=== PATIENT | male | born 1960 | race Caucasian/White ===

== ENCOUNTER 2017-07-09 12:28 | Inpatient (IN) | payer OTHER ==
[~2017-07-09] VITALS: Ht 182.9 cm; Wt 77.2 kg
[~2017-07-09 12:28] MED LIST: CYCL10 PO; GABA100 PO; GABA300 PO; HYDACE10B PO; LORA.5 PO; METPRE4DP PO; Norco 5-325 Ta1 EACH PO; OLAN10 PO; Pravastatin Sod40 MG PO; Prozac40 MG PO
[2017-07-09 13:08] LABS: International Normalized Ratio 1.07; Prothrombin Time Results 11.1 Sec (9.7-11.5)
[2017-07-09 13:08] LABS: PCO2 Arterial 48.5 mmHg (35-45); PO2 Arterial 56.3 mmHg (80-100); pH Blood Arterial 7.34 (7.35-7.45)
[2017-07-09 13:09] LABS: Ethanol (Alcohol), Blood, Med <3 mg/dL
[2017-07-09 13:15] LABS: Alanine Aminotransfer (ALT/SGP 30 U/L (12-78); Albumin, Blood 3.6 g/dL (3.4-5.0); Albumin/Globulin Ratio 1.1 (0.8-1.8); Alk Phos 80 U/L (50-136); Anion Gap 20 mmol/L (6-16); Aspartate Aminotrans (AST/SGOT 42 U/L (12-37); Bilirubin, Total 0.6 mg/dL (0.1-1.0); Blood Urea Nitrogen 7 mg/dL (8-24); Bun/Creatinine Ratio 8.7 (12.0-20.0); CO2, Blood 21 mmol/L (21-32); Calcium, Blood 7.8 mg/dL (8.5-10.1); Chloride, Blood 62 mmol/L (98-108); Globulin, Blood 3.4 g/dL (2.2-4.0); Glomerular Filtration Rate >60 (60-); Glucose, Blood 214 mg/dL (70-99); Potassium, Blood 2.8 mmol/L (3.5-5.5); Sodium, Blood 103 mmol/L (136-145)
[2017-07-09 13:28] LABS: Creatine Kinase MB 7.8 ng/mL (0.0-3.6); Creatine Kinase MB Index 1.5 (0.0-4.0)
[2017-07-09 13:42] LABS: U Amphetamine Screen Not Detected; U Barbituate Screen Not Detected; U Benzodiazapine Screen Not Detected; U Buprenorphine Screen Not Detected; U Cannabinoids Screen Not Detected; U Cocaine Screen Not Detected; U Methadone Screen Not Detected; U Methamphetamine Screen Not Detected; U Opiates Screen Not Detected; U Oxycodone Screen Not Detected; U Phencyclidine Screen Not Detected; U Propoxyphene Screen Not Detected
[2017-07-09 14:58] LABS: BASOPHILS PERCENT AUTO 0 % (0-2); EOSINOPHILS ABSOLUTE AUTO 0.02 K/mm3 (0.00-0.68); EOSINOPHILS PERCENT AUTO 0 % (0-6); IMMATURE GRAN ABSOLUTE AUTO 0.06 K/mm3 (0.00-0.10); IMMATURE GRAN PERCENT AUTO 1 % (0-1); LYMPHOCYTES PERCENT AUTO 11 % (21-46); MONOCYTES ABSOLUTE AUTO 0.35 K/mm3 (0.16-1.47); MONOCYTES PERCENT AUTO 3 % (4-13); Mean Platelet Volume 9.1 fL (9.1-12.4); NEUTROPHILS ABSOLUTE AUTO 9.05 K/mm3 (1.96-9.15); NEUTROPHILS PERCENT AUTO 85 % (41-73); Platelet Count 310 K/mm3 (150-400); RDW Coefficient Variation 12.3 % (11.7-14.2); RDW Standard Deviation 38.2 fL (35.1-46.3); Red Blood Cell Count 4.35 M/mm3 (4.30-5.90); White Blood Cell Count 10.68 K/mm3 (4.00-11.30)
[2017-07-09 16:47] LABS: Mean Corpuscular HGB Conc 36.8 g/dL (31.5-36.5)
[2017-07-09 16:48] LABS: Mean Corpuscular HGB 32.2 pg (26.0-34.0)
[2017-07-09 16:49] LABS: Mean Corpuscular Volume 87 fL (80-100)
[2017-07-09 17:25] LABS: Anion Gap 10 mmol/L (6-16); Blood Urea Nitrogen 6 mg/dL (8-24); Bun/Creatinine Ratio 8.6 (12.0-20.0); CO2, Blood 25 mmol/L (21-32); Chloride, Blood 77 mmol/L (98-108); Glomerular Filtration Rate >60 (60-); Glucose, Blood 89 mg/dL (70-99); Sodium, Blood 112 mmol/L (136-145)
[2017-07-09 18:14] LABS: Sodium, Urine, Random 67 mmol/L (20-110)
[2017-07-09 18:33] LABS: Osmolality, Urine 339 mos/kg (15-1400)
[2017-07-10 04:06] LABS: Anion Gap 8 mmol/L (6-16); Blood Urea Nitrogen 6 mg/dL (8-24); Bun/Creatinine Ratio 7.3 (12.0-20.0); CO2, Blood 25 mmol/L (21-32); Calcium, Blood 7.6 mg/dL (8.5-10.1); Chloride, Blood 85 mmol/L (98-108); Creatinine, Blood 0.82 mg/dL (0.60-1.20); Glomerular Filtration Rate >60 (60-); Glucose, Blood 83 mg/dL (70-99); Potassium, Blood 3.6 mmol/L (3.5-5.5); Sodium, Blood 118 mmol/L (136-145)
[2017-07-10 14:39] LABS: Anion Gap 9 mmol/L (6-16); Blood Urea Nitrogen 4 mg/dL (8-24); Bun/Creatinine Ratio 5.2 (12.0-20.0); CO2, Blood 27 mmol/L (21-32); Calcium, Blood 7.6 mg/dL (8.5-10.1); Chloride, Blood 86 mmol/L (98-108); Creatinine, Blood 0.76 mg/dL (0.60-1.20); Glomerular Filtration Rate >60 (60-); Glucose, Blood 90 mg/dL (70-99); Potassium, Blood 2.7 mmol/L (3.5-5.5); Sodium, Blood 122 mmol/L (136-145)
[2017-07-11 05:13] LABS: PCO2 Arterial 39.6 mmHg (35-45); PO2 Arterial 56.5 mmHg (80-100); pH Blood Arterial 7.51 (7.35-7.45)
[2017-07-11 06:55] LABS: BASOPHILS ABSOLUTE AUTO 0.01 K/mm3 (0.00-0.23); BASOPHILS PERCENT AUTO 0 % (0-2); EOSINOPHILS ABSOLUTE AUTO 0.03 K/mm3 (0.00-0.68); EOSINOPHILS PERCENT AUTO 0 % (0-6); Hematocrit 29.3 % (37.0-53.0); Hemoglobin 10.7 g/dL (13.5-17.5); IMMATURE GRAN ABSOLUTE AUTO 0.02 K/mm3 (0.00-0.10); IMMATURE GRAN PERCENT AUTO 0 % (0-1); LYMPHOCYTES ABSOLUTE AUTO 1.47 K/mm3 (0.84-5.20); LYMPHOCYTES PERCENT AUTO 18 % (21-46); MONOCYTES ABSOLUTE AUTO 0.51 K/mm3 (0.16-1.47); MONOCYTES PERCENT AUTO 6 % (4-13); Mean Corpuscular HGB 32.1 pg (26.0-34.0); Mean Corpuscular HGB Conc 36.5 g/dL (31.5-36.5); Mean Corpuscular Volume 88 fL (80-100); Mean Platelet Volume 8.8 fL (9.1-12.4); NEUTROPHILS ABSOLUTE AUTO 6.13 K/mm3 (1.96-9.15); NEUTROPHILS PERCENT AUTO 75 % (41-73); Platelet Count 188 K/mm3 (150-400); RDW Coefficient Variation 12.6 % (11.7-14.2); RDW Standard Deviation 40.9 fL (35.1-46.3); Red Blood Cell Count 3.33 M/mm3 (4.30-5.90); White Blood Cell Count 8.17 K/mm3 (4.00-11.30)
[2017-07-11 07:17] LABS: Anion Gap 7 mmol/L (6-16); Blood Urea Nitrogen 3 mg/dL (8-24); Bun/Creatinine Ratio 4.3 (12.0-20.0); CO2, Blood 30 mmol/L (21-32); Calcium, Blood 7.9 mg/dL (8.5-10.1); Chloride, Blood 86 mmol/L (98-108); Glomerular Filtration Rate >60 (60-); Glucose, Blood 85 mg/dL (70-99); Potassium, Blood 3.3 mmol/L (3.5-5.5); Sodium, Blood 123 mmol/L (136-145)
[2017-07-11 15:45] LABS: Anion Gap 6 mmol/L (6-16); Blood Urea Nitrogen 3 mg/dL (8-24); Bun/Creatinine Ratio 3.9 (12.0-20.0); CO2, Blood 29 mmol/L (21-32); Calcium, Blood 7.9 mg/dL (8.5-10.1); Chloride, Blood 86 mmol/L (98-108); Creatinine, Blood 0.78 mg/dL (0.60-1.20); Glomerular Filtration Rate >60 (60-); Glucose, Blood 97 mg/dL (70-99); Potassium, Blood 3.5 mmol/L (3.5-5.5); Sodium, Blood 121 mmol/L (136-145)
[2017-07-12 04:04] LABS: BASOPHILS ABSOLUTE AUTO 0.01 K/mm3 (0.00-0.23); BASOPHILS PERCENT AUTO 0 % (0-2); EOSINOPHILS ABSOLUTE AUTO 0.02 K/mm3 (0.00-0.68); EOSINOPHILS PERCENT AUTO 0 % (0-6); Hematocrit 31.8 % (37.0-53.0); Hemoglobin 11.6 g/dL (13.5-17.5); IMMATURE GRAN ABSOLUTE AUTO 0.02 K/mm3 (0.00-0.10); IMMATURE GRAN PERCENT AUTO 0 % (0-1); LYMPHOCYTES ABSOLUTE AUTO 0.65 K/mm3 (0.84-5.20); LYMPHOCYTES PERCENT AUTO 8 % (21-46); MONOCYTES ABSOLUTE AUTO 0.34 K/mm3 (0.16-1.47); MONOCYTES PERCENT AUTO 4 % (4-13); Mean Corpuscular HGB 32.2 pg (26.0-34.0); Mean Corpuscular HGB Conc 36.5 g/dL (31.5-36.5); Mean Corpuscular Volume 88 fL (80-100); NEUTROPHILS PERCENT AUTO 88 % (41-73); Platelet Count 208 K/mm3 (150-400); RDW Coefficient Variation 12.6 % (11.7-14.2); RDW Standard Deviation 40.9 fL (35.1-46.3); White Blood Cell Count 8.44 K/mm3 (4.00-11.30)
[2017-07-12 04:26] LABS: Anion Gap 9 mmol/L (6-16); Blood Urea Nitrogen 3 mg/dL (8-24); Bun/Creatinine Ratio 3.9 (12.0-20.0); CO2, Blood 22 mmol/L (21-32); Chloride, Blood 91 mmol/L (98-108); Creatinine, Blood 0.77 mg/dL (0.60-1.20); Glomerular Filtration Rate >60 (60-); Glucose, Blood 106 mg/dL (70-99); Potassium, Blood 3.7 mmol/L (3.5-5.5); Sodium, Blood 122 mmol/L (136-145)
[2017-07-12 05:01] LABS: PCO2 Arterial 31.4 mmHg (35-45); PO2 Arterial 70.6 mmHg (80-100); pH Blood Arterial 7.49 (7.35-7.45)
[2017-07-12 18:19] LABS: Anion Gap 10 mmol/L (6-16); Blood Urea Nitrogen 4 mg/dL (8-24); Bun/Creatinine Ratio 5.3 (12.0-20.0); CO2, Blood 22 mmol/L (21-32); Calcium, Blood 8.6 mg/dL (8.5-10.1); Chloride, Blood 90 mmol/L (98-108); Creatinine, Blood 0.76 mg/dL (0.60-1.20); Glomerular Filtration Rate >60 (60-); Glucose, Blood 90 mg/dL (70-99); Potassium, Blood 3.7 mmol/L (3.5-5.5); Sodium, Blood 122 mmol/L (136-145)
[2017-07-13 03:23] LABS: BASOPHILS ABSOLUTE AUTO 0.01 K/mm3 (0.00-0.23); BASOPHILS PERCENT AUTO 0 % (0-2); EOSINOPHILS ABSOLUTE AUTO 0.08 K/mm3 (0.00-0.68); EOSINOPHILS PERCENT AUTO 1 % (0-6); Hematocrit 32.2 % (37.0-53.0); Hemoglobin 11.4 g/dL (13.5-17.5); IMMATURE GRAN ABSOLUTE AUTO 0.02 K/mm3 (0.00-0.10); IMMATURE GRAN PERCENT AUTO 0 % (0-1); LYMPHOCYTES ABSOLUTE AUTO 1.33 K/mm3 (0.84-5.20); LYMPHOCYTES PERCENT AUTO 19 % (21-46); MONOCYTES ABSOLUTE AUTO 0.74 K/mm3 (0.16-1.47); MONOCYTES PERCENT AUTO 10 % (4-13); Mean Corpuscular HGB 32.1 pg (26.0-34.0); Mean Corpuscular HGB Conc 35.4 g/dL (31.5-36.5); Mean Platelet Volume 9.2 fL (9.1-12.4); NEUTROPHILS ABSOLUTE AUTO 4.97 K/mm3 (1.96-9.15); NEUTROPHILS PERCENT AUTO 70 % (41-73); Platelet Count 203 K/mm3 (150-400); RDW Standard Deviation 43.2 fL (35.1-46.3); Red Blood Cell Count 3.55 M/mm3 (4.30-5.90); White Blood Cell Count 7.15 K/mm3 (4.00-11.30)
[2017-07-13 03:24] LABS: Mean Corpuscular Volume 91 fL (80-100)
[2017-07-13 04:43] LABS: Alanine Aminotransfer (ALT/SGP 29 U/L (12-78); Albumin, Blood 2.6 g/dL (3.4-5.0); Albumin/Globulin Ratio 0.8 (0.8-1.8); Alk Phos 59 U/L (50-136); Anion Gap 8 mmol/L (6-16); Aspartate Aminotrans (AST/SGOT 48 U/L (12-37); Bilirubin, Total 0.5 mg/dL (0.1-1.0); Blood Urea Nitrogen 5 mg/dL (8-24); CO2, Blood 23 mmol/L (21-32); Chloride, Blood 95 mmol/L (98-108); Creatinine, Blood 0.71 mg/dL (0.60-1.20); Globulin, Blood 3.4 g/dL (2.2-4.0); Glomerular Filtration Rate >60 (60-); Glucose, Blood 77 mg/dL (70-99); Phosphorus, Blood 3.4 mg/dL (2.5-4.9); Potassium, Blood 3.7 mmol/L (3.5-5.5); Sodium, Blood 126 mmol/L (136-145)
[2017-07-13] MEDS ORDERED: VARE1 PO (17:26)
[2017-07-13] MEDS ORDERED: HYDCHL25 PO (17:28)
[2017-07-13] MEDS ORDERED: Hydrocodone-Ap1 EA20 PO (17:31)
[2017-07-13] MEDS ORDERED: GABA300 PO (17:32)
[2017-07-14 04:45] LABS: BASOPHILS ABSOLUTE AUTO 0.02 K/mm3 (0.00-0.23); BASOPHILS PERCENT AUTO 0 % (0-2); EOSINOPHILS ABSOLUTE AUTO 0.11 K/mm3 (0.00-0.68); EOSINOPHILS PERCENT AUTO 1 % (0-6); Hematocrit 31.5 % (37.0-53.0); Hemoglobin 11.1 g/dL (13.5-17.5); IMMATURE GRAN ABSOLUTE AUTO 0.03 K/mm3 (0.00-0.10); IMMATURE GRAN PERCENT AUTO 0 % (0-1); LYMPHOCYTES ABSOLUTE AUTO 1.47 K/mm3 (0.84-5.20); LYMPHOCYTES PERCENT AUTO 16 % (21-46); MONOCYTES ABSOLUTE AUTO 1.08 K/mm3 (0.16-1.47); MONOCYTES PERCENT AUTO 12 % (4-13); Mean Corpuscular HGB 32.3 pg (26.0-34.0); Mean Corpuscular HGB Conc 35.2 g/dL (31.5-36.5); Mean Corpuscular Volume 92 fL (80-100); Mean Platelet Volume 8.9 fL (9.1-12.4); NEUTROPHILS ABSOLUTE AUTO 6.58 K/mm3 (1.96-9.15); NEUTROPHILS PERCENT AUTO 71 % (41-73); Platelet Count 236 K/mm3 (150-400); RDW Coefficient Variation 13.2 % (11.7-14.2); RDW Standard Deviation 44.4 fL (35.1-46.3); Red Blood Cell Count 3.44 M/mm3 (4.30-5.90); White Blood Cell Count 9.29 K/mm3 (4.00-11.30)
[2017-07-14 04:59] LABS: Alanine Aminotransfer (ALT/SGP 26 U/L (12-78); Albumin, Blood 2.6 g/dL (3.4-5.0); Albumin/Globulin Ratio 0.7 (0.8-1.8); Alk Phos 52 U/L (50-136); Anion Gap 9 mmol/L (6-16); Aspartate Aminotrans (AST/SGOT 36 U/L (12-37); Bilirubin, Total 0.3 mg/dL (0.1-1.0); Blood Urea Nitrogen 5 mg/dL (8-24); Bun/Creatinine Ratio 7.1 (12.0-20.0); CO2, Blood 23 mmol/L (21-32); Calcium, Blood 8.4 mg/dL (8.5-10.1); Chloride, Blood 94 mmol/L (98-108); Globulin, Blood 3.5 g/dL (2.2-4.0); Glomerular Filtration Rate >60 (60-); Glucose, Blood 87 mg/dL (70-99); Potassium, Blood 3.8 mmol/L (3.5-5.5); Sodium, Blood 126 mmol/L (136-145); Total Protein, Blood 6.1 g/dL (6.4-8.2)
[2017-07-15 04:38] LABS: BASOPHILS ABSOLUTE AUTO 0.01 K/mm3 (0.00-0.23); BASOPHILS PERCENT AUTO 0 % (0-2); EOSINOPHILS ABSOLUTE AUTO 0.09 K/mm3 (0.00-0.68); EOSINOPHILS PERCENT AUTO 1 % (0-6); Hematocrit 31.6 % (37.0-53.0); Hemoglobin 11.3 g/dL (13.5-17.5); IMMATURE GRAN ABSOLUTE AUTO 0.02 K/mm3 (0.00-0.10); IMMATURE GRAN PERCENT AUTO 0 % (0-1); LYMPHOCYTES ABSOLUTE AUTO 1.54 K/mm3 (0.84-5.20); LYMPHOCYTES PERCENT AUTO 17 % (21-46); MONOCYTES PERCENT AUTO 11 % (4-13); Mean Corpuscular HGB 31.8 pg (26.0-34.0); Mean Corpuscular HGB Conc 35.8 g/dL (31.5-36.5); Mean Platelet Volume 8.8 fL (9.1-12.4); NEUTROPHILS ABSOLUTE AUTO 6.24 K/mm3 (1.96-9.15); NEUTROPHILS PERCENT AUTO 70 % (41-73); Platelet Count 272 K/mm3 (150-400); RDW Coefficient Variation 12.9 % (11.7-14.2); RDW Standard Deviation 42.1 fL (35.1-46.3); Red Blood Cell Count 3.55 M/mm3 (4.30-5.90)
[2017-07-15 04:47] LABS: Mean Corpuscular Volume 89 fL (80-100)
[2017-07-15 04:59] LABS: Alanine Aminotransfer (ALT/SGP 29 U/L (12-78); Albumin, Blood 2.6 g/dL (3.4-5.0); Albumin/Globulin Ratio 0.7 (0.8-1.8); Alk Phos 54 U/L (50-136); Anion Gap 10 mmol/L (6-16); Aspartate Aminotrans (AST/SGOT 39 U/L (12-37); Bilirubin, Total 0.3 mg/dL (0.1-1.0); Blood Urea Nitrogen 6 mg/dL (8-24); CO2, Blood 24 mmol/L (21-32); Calcium, Blood 8.8 mg/dL (8.5-10.1); Chloride, Blood 93 mmol/L (98-108); Globulin, Blood 3.9 g/dL (2.2-4.0); Glomerular Filtration Rate >60 (60-); Glucose, Blood 85 mg/dL (70-99); Potassium, Blood 3.5 mmol/L (3.5-5.5); Sodium, Blood 127 mmol/L (136-145); Total Protein, Blood 6.5 g/dL (6.4-8.2)
[2017-07-16] MEDS ORDERED: Prozac20 MG (12:27)
[2017-07-16] MEDS ORDERED: Verotin-Gr Cap1 EACH PO (12:30)
[2017-07-16] MEDS ORDERED: FAMO20 PO (12:32)
[2017-07-16] MEDS ORDERED: METO25ER PO (12:34)
== END 2017-07-16 13:34 | disposition home health service (06) | DRG 208 ==
LOC: ER 12:28 → MEDS 13:38 → ICUE 13:38 → ICUW 13:38 → ICUE 14:05 → MEDS 07-13 15:58 → ENPENDDIS 07-16 11:00 → MEDS 07-16 13:34
PROVIDERS: Emergency Medicine; Family Medicine; Hospitalist; Internal Medicine Pulmonary Disease
PROC: 5A1945Z Respiratory Ventilation, 24-96 Consecutive Hours (ICD-10-PCS; principal; 2017-07-09)
PROC: 0BH18EZ Insertion of Endotracheal Airway into Trachea, Via Natural or Artificial Opening Endoscopic (ICD-10-PCS; principal; 2017-07-09)
PROC: 05H533Z Insertion of Infusion Device into Right Subclavian Vein, Percutaneous Approach (ICD-10-PCS; principal; 2017-07-09)
DX: J96.02 Acute respiratory failure with hypercapnia (principal); E87.1 Hypo-osmolality and hyponatremia; E78.5 Hyperlipidemia, unspecified; F32.9 Major depressive disorder, single episode, unspecified; F41.9 Anxiety disorder, unspecified; J96.01 Acute respiratory failure with hypoxia; R41.82 Altered mental status, unspecified; F10.229 Alcohol dependence with intoxication, unspecified; Y90.0 Blood alcohol level of less than 20 mg/100 ml; F17.200 Nicotine dependence, unspecified, uncomplicated; Z85.46 Personal history of malignant neoplasm of prostate
CPT/HCPCS: 31720; 36415; 36600; 51702; 70450; 71010; 71020; 80048; 80053; 82140; 82550; 82553; 82803; 82947; 83735; 83880; 83930; 83935; 84100; 84132; 84300; 85025; 85610; 86140; 87040; 87070; 87205; 87493; 93005; 93010; 94002; 94003; 94640; 94760; 96365; 96375; 97116; 97162; 97530; 99291; 99292; G0480; G8978; G8979; J0360; J1650; J2001; J2060; J2250; J2543; J3010; J3480; J7030; J7050; J7060; J7070; Q2038

== ENCOUNTER 2019-01-16 10:19 | Day surgery (SDC) | payer OTHER ==
[~2019-01-16 10:19] MED LIST changes: +FAMO20 PO; +HYDCHL25 PO; +Hydrocodone-Ap1 EA20 PO; +METO25ER PO; +Prozac20 MG; +VARE1 PO; +Verotin-Gr Cap1 EACH PO
== END 2019-01-16 23:39 | disposition home or self-care (01) ==
LOC: ORD 10:19 → RAD 10:19 → ORD 10:30 → RAD 11:00 → ORD 23:39
DX: R35.0 Frequency of micturition (principal); N32.89 Other specified disorders of bladder
CPT/HCPCS: 51600; 74455; Q9967

== ENCOUNTER → 2019-02-28 | Outpatient (CLI) | payer OTHER ==
[2019-02-28 16:12] LABS: U Amphetamine Screen Not Detected; U Barbituate Screen Not Detected; U Benzodiazapine Screen DETECTED; U Buprenorphine Screen Not Detected; U Cannabinoids Screen Not Detected; U Cocaine Screen Not Detected; U Methadone Screen Not Detected; U Methamphetamine Screen Not Detected; U Opiates Screen DETECTED; U Oxycodone Screen Not Detected; U Phencyclidine Screen Not Detected; U Propoxyphene Screen Not Detected
== END | disposition home or self-care (01) ==
LOC: LAB 15:40 → LAB SHORT 15:40
PROVIDERS: Registered Nurse Psychiatric/Mental Health
DX: Z51.81 Encounter for therapeutic drug level monitoring (principal); Z79.899 Other long term (current) drug therapy
CPT/HCPCS: G0480

== ENCOUNTER → 2019-05-27 | Outpatient (CLI) | payer OTHER ==
[2019-05-27 19:58] LABS: U Amphetamine Screen Not Detected; U Barbituate Screen Not Detected; U Benzodiazapine Screen Not Detected; U Buprenorphine Screen Not Detected; U Cannabinoids Screen Not Detected; U Cocaine Screen Not Detected; U Methadone Screen Not Detected; U Methamphetamine Screen Not Detected; U Opiates Screen DETECTED; U Oxycodone Screen DETECTED; U Phencyclidine Screen Not Detected; U Propoxyphene Screen Not Detected
== END | disposition home or self-care (01) ==
LOC: LAB SHORT 17:58 → LAB 17:58
PROVIDERS: Registered Nurse Psychiatric/Mental Health
DX: Z51.81 Encounter for therapeutic drug level monitoring (principal); Z79.899 Other long term (current) drug therapy

== ENCOUNTER 2019-07-26 14:44 | Inpatient (IN) | payer OTHER ==
[~2019-07-26] VITALS: Ht 182.9 cm; Wt 75.7 kg
[2019-07-26] MEDS ORDERED: FOLI1 PO (16:18)
[2019-07-26] MEDS ORDERED: METOPROLOL SUCC25 MG PO (16:19)
[2019-07-26] MEDS ORDERED: ATOR40TA PO (16:19)
[2019-07-26] MEDS ORDERED: GABAPENTIN600 MG PO (16:19)
[2019-07-26] MEDS ORDERED: Heartburn Relie20 MG PO (16:19)
[2019-07-26] MEDS ORDERED: UROXATRAL PO (16:20)
[2019-07-26] MEDS ORDERED: Mobic15 MG PO (16:20)
[2019-07-26] MEDS ORDERED: PREG50 PO (16:20)
[2019-07-26] MEDS ORDERED: OLANZAPINE15 MG PO (16:21)
[2019-07-26] MEDS ORDERED: DULOXETINE HCL40 MG PO (16:21)
[2019-07-26] MEDS ORDERED: DIAZ5 PO (16:22)
[2019-07-26 19:15] LABS: Source, Urine Clean Catch
[2019-07-26 19:20] LABS: Bilirubin, Urine Neg (Neg); Blood, Urine 3+ (Neg); Glucose Qualitative, Urine Neg (Neg); Ketones, Urine 1+ (Neg); Leukocyte Esterase, Urine Neg (Neg); Nitrite, Urine Neg (Neg); Protein, Urine 2+ (Neg); Urobilinogen, Urine NORM (Normal)
[2019-07-26 19:27] LABS: Appearance, Urine Clear (Clear); Color, Urine Yellow (P-Yellow)
[2019-07-26 19:29] LABS: Bacteria Few /hpf; Squamous Epithelial Cells Rare /hpf (Few); White Blood Cells, Urine 0-2 /hpf (0-5)
[2019-07-26 20:44] LABS: Hematocrit 34.9 % (37.0-53.0); Mean Platelet Volume 10.1 fL (9.1-12.4); Platelet Count 201 K/mm3 (150-400)
[2019-07-26] MEDS ORDERED: NORCO 10-325 T1 EACH PO (21:27)
--- NOTE | 2019-07-27 01:28 | NUR ---
PT GIVEN TYLENOL PER EMAR. NEW ORDER FOR NORCO PER PT BASELINE FOR CHRONIC BACK PAIN. HOSPITALIST OK WITH GIVING TYLENOL DESPITE DX. TO ONLY BE GIVEN IF PT REALLY NEEDS IT.
--- NOTE | 2019-07-27 04:29 | NUR ---
SHIFT SUMMARY: PT IS A NEW ADMIT THIS SHIFT FOR A DX OF ACUTE RENAL FAILURE. PT REPORTS RECENT WEAKNESS, BLOODY DIARRHEA, AMS AND DECREASED URINE OUTPUT. LACTIC ACID 2.2 UPON ARRIVAL TO UNIT. PT GIVEN 500CC BOLUS AND SCHED ABX. FLUIDS NOW INFUSING AT 200ML/HR. 2/2 ORDERED BAGS GIVEN. PT SBA TO BATHROOM. HAVING FREQ EPISODES OF DIARRHEA. SMALL AMOUNT OF BLOOD NOTED ON TOILET PAPER. HGB STABLE. GI PANEL COLLECTED AND SENT TO LAB. PT WITH GENERALIZED WEAKNESS. A&O X4- PT SLOW TO RESPOND AND IS HAVING A DIFFICULT TIME RECALLING WORDS.
[2019-07-27 05:47] LABS: Hematocrit 31.1 % (37.0-53.0); Mean Corpuscular HGB 31.3 pg (26.0-34.0); Mean Corpuscular HGB Conc 32.2 g/dL (31.5-36.5); Mean Platelet Volume 10.3 fL (9.1-12.4); Platelet Count 223 K/mm3 (150-400); RDW Coefficient Variation 13.7 % (11.7-14.2); RDW Standard Deviation 49.1 fL (35.1-46.3); Red Blood Cell Count 3.19 M/mm3 (4.30-5.90); White Blood Cell Count 15.07 K/mm3 (4.00-11.30)
[2019-07-27 05:53] LABS: Adenovirus F 40/41 Not Detected (NOT DETECT); Astrovirus Not Detected (NOT DETECT); Campylobacter Sp Not Detected (NOT DETECT); Cryptosporidium Not Detected (NOT DETECT); Cyclospora Cayetanensis Not Detected (NOT DETECT); E. Coli O157 Not Detected (NOT DETECT); Entamoeba Histolytica Not Detected (NOT DETECT); Enteroaggregative E. coli-EAEC Not Detected (NOT DETECT); Enteropathogenic E. coli-EPEC Not Detected (NOT DETECT); Enterotoxigenic E. coli-ETEC Not Detected (NOT DETECT); Giardia Lamblia Not Detected (NOT DETECT); Norovirus GI/GII Not Detected (NOT DETECT); Plesiomonas Shigelloides Not Detected (NOT DETECT); Rotavirus A Not Detected (NOT DETECT); Salmonella Sp Not Detected (NOT DETECT); Sapovirus Not Detected (NOT DETECT); Shiga Toxin-prod E. coli-STEC Not Detected (NOT DETECT); Shigella/Enteroin E. coli-EIEC Not Detected (NOT DETECT); Vibrio Cholerae Not Detected (NOT DETECT); Vibrio Sp Not Detected (NOT DETECT); Yersinia Enterocolitica Not Detected (NOT DETECT)
[2019-07-27 06:00] LABS: Mean Corpuscular Volume 98 fL (80-100)
[2019-07-27 06:06] LABS: Bun/Creatinine Ratio 28.8 (12.0-20.0); Calcium, Blood 8.4 mg/dL (8.5-10.1); Creatinine, Blood 1.32 mg/dL (0.60-1.20); Potassium, Blood 3.7 mmol/L (3.5-5.5)
[2019-07-27 06:14] LABS: BAND PERCENT MAN 17 % (0-8); BASOPHILS PERCENT MAN 0 % (0-2); EOSINOPHILS PERCENT MAN 2 % (0-6); LYMPHOCYTES ABSOLUTE MAN 1.05 K/mm3 (0.84-5.20); LYMPHOCYTES PERCENT MAN 7 % (21-46); METAMYELOCYTE PERCENT MAN 2 % (0-0); MONOCYTES PERCENT MAN 10 % (4-13); SEG NEUTROPHILS PERCENT MAN 62 % (41-73); TOTAL CELLS COUNTED 100
--- NOTE | 2019-07-27 10:54 | NUR ---
AYDEE ORDERED OT PER DR. GUEVARA OT ATIVAN ORDER PRIOR TO MRI SCAN DUE TO CLAUSTROPHOBIA.
[2019-07-27 10:56] LABS: Albumin, Blood 2.3 g/dL (3.4-5.0); Albumin/Globulin Ratio 0.5 (0.8-1.8); Bilirubin, Direct 0.2 mg/dL (0.0-0.3); Bilirubin, Indirect 0.6 mg/dL (0.1-0.7); Bilirubin, Total 0.8 mg/dL (0.1-1.0); Globulin, Blood 4.3 g/dL (2.2-4.0); Total Protein, Blood 6.6 g/dL (6.4-8.2)
--- NOTE | 2019-07-27 16:50 | NUR ---
SHIFT SUMMARY PT HAD ABD ULTRASOUND AND MRI COMPLETED TODAY. GI CONSULTED. DR. VELÁSQUEZ PLANS ON COLONOSCOPY TOMORROW. PREP TO START TONIGHT. NPO AFTER MIDNIGHT. PT MEDICATED FOR PAIN ONCE THIS SHIFT. PT HAD NUMOROUS SMALL LIQUID STOOLS THIS SHIFT. AMOUNT HAS SLOWED THE SHIFT HAS PROGRESSED. PT IND IN ROOM. SHOWERED TODAY. NO OTHER CHANGES IN ASSESSMENT AT THIS TIME. VSS. WILL CONTINUE TO MONITOR UNITL TURNOVER IS COMPLETE.
--- NOTE | 2019-07-27 19:04 | NUR ---
PATIENT STATES HE HAS NOT HAD ALCOHOL INTAKE IN OVER A YEAR. THIS RN PERFORMED A CIWA AT 13. PATIENT IS UNAWARE THAT HE IS IN THE HOSPITAL, BELIEVES HE IS IN [place]. STATES HE IS FINE AT THIS TIME AND HAPPY TO STAY THE NIGHT. REFUSING TO TAKE OFF JEANS AND ATTENDS. NOTIFIED GAS ENGINE OPERATOR LORI.
--- NOTE | 2019-07-27 19:39 | NUR ---
PT AGITATED AT SHIFT CHANGE PT BECAME AGITATED AT THE END OF SHIFT. STATING HE WANTS TO LEAVE. PT ENCOURAGED TO STAY & EDUCATED ON WHY HE SHOULD STAY. PT TALKED WITH BROTHER AND MOTHER ON PHONE. PT CALMED DOWN. C.O.D. BILLER FURTHER CALMED PT. PT AGREED TO STAY. THIS RN NOTICED INCREASED CONFUSION AFTER ATIVAN DOSE THROUGHOUT SHIFT. PT EXTREMELY CONFUSED THIS EVENING AT SHIFT CHANGE. PT CURRENTLY LYING IN BED. REPORT GIVEN TO WILLY KNOWLES.
[2019-07-28 05:30] LABS: Hemoglobin 9.7 g/dL (13.5-17.5); Mean Corpuscular HGB 31.5 pg (26.0-34.0); Mean Corpuscular HGB Conc 32.3 g/dL (31.5-36.5); Mean Corpuscular Volume 97 fL (80-100); Platelet Count 287 K/mm3 (150-400); RDW Coefficient Variation 13.8 % (11.7-14.2); RDW Standard Deviation 48.8 fL (35.1-46.3); Red Blood Cell Count 3.08 M/mm3 (4.30-5.90); White Blood Cell Count 12.79 K/mm3 (4.00-11.30)
[2019-07-28 05:51] LABS: BAND PERCENT MAN 6 % (0-8); BASOPHILS PERCENT MAN 0 % (0-2); EOSINOPHILS ABSOLUTE MAN 0.12 K/mm3 (0.00-0.68); EOSINOPHILS PERCENT MAN 1 % (0-6); LYMPHOCYTES PERCENT MAN 11 % (21-46); METAMYELOCYTE ABSOLUTE MAN 0.12 K/mm3 (0.00-0.00); METAMYELOCYTE PERCENT MAN 1 % (0-0); MONOCYTES ABSOLUTE MAN 1.27 K/mm3 (0.16-1.47); MONOCYTES PERCENT MAN 10 % (4-13); NEUTROPHILS ABSOLUTE MAN 9.84 K/mm3 (1.96-9.15); SEG NEUTROPHILS PERCENT MAN 71 % (41-73); TOTAL CELLS COUNTED 100
[2019-07-28 05:53] LABS: Alanine Aminotransfer (ALT/SGP 76 U/L (12-78); Albumin, Blood 2.2 g/dL (3.4-5.0); Albumin/Globulin Ratio 0.6 (0.8-1.8); Alk Phos 123 U/L (50-136); Anion Gap 11 mmol/L (6-16); Aspartate Aminotrans (AST/SGOT 90 U/L (12-37); Bilirubin, Total 0.6 mg/dL (0.1-1.0); Blood Urea Nitrogen 18 mg/dL (8-24); Bun/Creatinine Ratio 19.6 (12.0-20.0); CO2, Blood 17 mmol/L (21-32); Calcium, Blood 8.3 mg/dL (8.5-10.1); Chloride, Blood 109 mmol/L (98-108); Creatinine, Blood 0.92 mg/dL (0.60-1.20); Globulin, Blood 3.9 g/dL (2.2-4.0); Glomerular Filtration Rate >60 (60-); Glucose, Blood 71 mg/dL (70-99); Magnesium, Blood 1.4 mg/dL (1.6-2.4); Sodium, Blood 137 mmol/L (136-145); Total Protein, Blood 6.1 g/dL (6.4-8.2)
--- NOTE | 2019-07-28 06:32 | NUR ---
SHIFT SUMMARY PT HAS BEEN CONFUSED THIS SHIFT. NURSING NOTED INCREASED CONFUSION WITH PT BEING AWAKE. HAS ATTEMPTED TO LEAVE AMA X2. ONCE AT START OF SHIFT BEDSIDE REPORT WAS OCCURING. THE SECOND TIME WAS AROUND MIDNIGHT. PT HAD AGAIN DECIDED THAT HE NEEDED TO GO HOME SINCE HE HAD STUFF THAT HE NEEDED TO SELL. NURSING INFORMED HIM THAT HE NEEDED TO BE ABLE TO CONTACT HIS BROTHER AND THAT HIS BORTHER NEEDED TO SPEAK WITH NURSING ON SPEAKER PHONE AND THEN PHYSICALLY COME TO THE ROOM TO PICK HIM UP IN ORDER FOR NURSING TO FEEL SAFE WITH HIM LEAVING AMA. HE AGREED AND WAS ATTEMPTING TO CONTACT HIS BROTHER WHEN NURSING RETURNED TO THE ROOM 10 MINUTES LATER. HE THEN GOT INTO BED AND RESTED WITH EYES CLOSED. HAS BEEN A BIT MORE COOPERATIVE SINCE THEN, BUT HAS REFUSED TO DRINK THE SECOND HALF OF THE GOLYTLY. BM'S HAS BEEN BETWEEN CLEAR YELLOW TO JELLY STREAKED ORANGE. DENEIS FURTHER NEEDS OR WANTS AT THIS TIME. SAFETY MEASURES IN PLACE. WILL GIVE HAND OFF TO ONCOMING SHIFT USING SBAR.
--- NOTE | 2019-07-28 07:30 | NUR ---
BROWN STOOL PERSISTS- LATE ENTRY DR. VELÁSQUEZ CALLED & NOTIFIED THATPT BMS ARE LIQUID, BUT STILL YELLOWISH/BROWN IN COLOR. DR. VELÁSQUEZ ORDERED TO GIVE 2 FLEET ENEMAS 30 MINUTES APART.
--- NOTE | 2019-07-28 10:20 | NUR ---
PT LEFT FOR SCOPE DAY SURGERY GORDO AGUILERA HERE TO TAKE PT TO DAY SURGERY. MAKE STARTED BEFORE DEPARTURE.
--- NOTE | 2019-07-28 10:36 | NUR ---
History, Chart, Medications and Allergies reviewed before start of procedure. Lungs clear T/O to Auscultation. Patient confirms NPO status and agrees with scheduled surgery. Pre-Op teaching done. Pt verbalizes understanding Patient states colon prep results per Deena, mucus and scant blood.
--- NOTE | 2019-07-28 11:58 | NUR ---
UPDATE FROM DR. CHRISTEN VELÁSQUEZ NOTIFIED THAT PT IS RECIEVING NS WITH 20 KCL AT 100ML/HR. STATED OK TO DC ADDED NS ORDER. ABD CT TO TAKE PLACE TOMORROW AM. NPO AFTER MIDNIGHT NEEDED. WILL CONTINUE TO MONITOR.
--- NOTE | 2019-07-28 12:04 | NUR ---
07/28/19 1204 Deena Leo History, Chart, Medications and Allergies reviewed before start of procedure.Patient confirms NPO status and agrees with scheduled surgery.PATIENT DETERMINED TO BE ASA APPROPRIATE FOR PROPOFOL SEDATION PRIOR TO START OF PROCEDURE BY MONITOR INTACT WITH CONTINUOUS PULSE OXIMETRY AND INTERMITTENT BP. DIFFICULT TIME OBTAINING SPO2 IN MIDDLE OF CASE, FINALLY ABLE TO GET SPO2 ON BIG TOE UNABLE TO ON FINGERS OR EARS. SPO2 100% ON 4LNC AFTER ABLE TO OBTAIN AGAIN. 3-LEAD EKG REVIEWED WITH PHYSICIAN PRIOR TO START OF PROCEDURE.O2 VIA N/C INTACT THROUGHOUT SEDATION/PROCEDURE.
--- NOTE | 2019-07-28 12:15 | NUR ---
PT BACK FROM DAY SURGERY PT BACK FROM DAY SURGERY. COLONOSCOPY COMPLETED. CLEAR LIQ DIET STARTED. FLUIDS RUNNING ORDERED. VSS. PT SLEEPING IN BED AT THIS TIME.
--- NOTE | 2019-07-28 15:40 | NUR ---
INTRODUCED MYSELF TO PATIENT SARITHA STUDENT RN. PATIENT AGREED TO LET ME WORK WITH HIM TOMORROW A PATIENT AND HAS GIVEN ME PERMISSION TO LOOK AT HIS CHART. 07/28/19 @ 2064
--- NOTE | 2019-07-28 16:46 | NUR ---
SHIFT SUMMARY PT HAD COLONOSCOPY COMPLETED THIS SHIFT. SEVERE ULCERATION OF BOWEL FOUND. DR. VELÁSQUEZ ON CASE. ABD CT SCHEDULED FOR TOMORROW AM. PT TO BE NPO AT MIDNIGHT FOR IMAGING. PT TOLERATING CLEAR LIQ DIET AT THIS TIME. NO BM SINCE COLONOSCOPY. CIWAS 6 OR LESS THIS SHIFT. PT STILL CONFUSED INTERMITTENLY. HEAD CT COMPLETED. NO OTHER CHANGES IN ASSESSMENT AT THIS TIME. VSS. WILL CONTINUE TO MONITOR UNTIL TURNOVER IS COMPLETE.
--- NOTE | 2019-07-29 04:12 | NUR ---
SHIFT SUMMARY PATIENT HAD NO ACUTE CHANGES OBSERVED. AXOX 3 W/CONFUSION AT TIMES. CIWA SCORES 3. NPO AFTER MIDNIGHT FOR ABDOMEN CT. PIV REMAINS INTACT. KCL INFUSING AT 100 mL/HR. IV ABX INFUSED. DENIES PAIN, SOB, AND N/V. VSS/AFEBRILE. BED ALARM FOR IMPULSIVENESS TO BSC. MULTIPLE LOOSE BM'S. COOPERATIVE WITH CARE. CALL LIGHT IN REACH. BED IN LOWEST POSITION. WILL CONTINUE TO MONITOR UNTIL DAY SHIFT NURSE ASSUMES CARE.
[2019-07-29 05:27] LABS: BASOPHILS ABSOLUTE AUTO 0.03 K/mm3 (0.00-0.23); BASOPHILS PERCENT AUTO 0 % (0-2); EOSINOPHILS ABSOLUTE AUTO 0.12 K/mm3 (0.00-0.68); EOSINOPHILS PERCENT AUTO 1 % (0-6); Hematocrit 27.2 % (37.0-53.0); Hemoglobin 8.8 g/dL (13.5-17.5); IMMATURE GRAN ABSOLUTE AUTO 0.44 K/mm3 (0.00-0.10); IMMATURE GRAN PERCENT AUTO 4 % (0-1); LYMPHOCYTES ABSOLUTE AUTO 1.25 K/mm3 (0.84-5.20); LYMPHOCYTES PERCENT AUTO 12 % (21-46); MONOCYTES ABSOLUTE AUTO 0.78 K/mm3 (0.16-1.47); MONOCYTES PERCENT AUTO 7 % (4-13); Mean Corpuscular HGB 31.1 pg (26.0-34.0); Mean Corpuscular HGB Conc 32.4 g/dL (31.5-36.5); Mean Corpuscular Volume 96 fL (80-100); Mean Platelet Volume 9.7 fL (9.1-12.4); NEUTROPHILS PERCENT AUTO 75 % (41-73); Platelet Count 300 K/mm3 (150-400); RDW Coefficient Variation 13.6 % (11.7-14.2); RDW Standard Deviation 48.4 fL (35.1-46.3); Red Blood Cell Count 2.83 M/mm3 (4.30-5.90); White Blood Cell Count 10.52 K/mm3 (4.00-11.30)
[2019-07-29 05:45] LABS: Alanine Aminotransfer (ALT/SGP 60 U/L (12-78); Albumin, Blood 1.9 g/dL (3.4-5.0); Albumin/Globulin Ratio 0.6 (0.8-1.8); Alk Phos 90 U/L (50-136); Anion Gap 8 mmol/L (6-16); Aspartate Aminotrans (AST/SGOT 48 U/L (12-37); Bilirubin, Total 0.4 mg/dL (0.1-1.0); Blood Urea Nitrogen 7 mg/dL (8-24); Bun/Creatinine Ratio 8.4 (12.0-20.0); CO2, Blood 19 mmol/L (21-32); Calcium, Blood 7.7 mg/dL (8.5-10.1); Chloride, Blood 111 mmol/L (98-108); Creatinine, Blood 0.83 mg/dL (0.60-1.20); Globulin, Blood 3.3 g/dL (2.2-4.0); Glomerular Filtration Rate >60 (60-); Glucose, Blood 95 mg/dL (70-99); Magnesium, Blood 1.7 mg/dL (1.6-2.4); Potassium, Blood 3.4 mmol/L (3.5-5.5); Sodium, Blood 138 mmol/L (136-145); Total Protein, Blood 5.2 g/dL (6.4-8.2)
--- NOTE | 2019-07-29 14:08 | NUR ---
PATIENT HAS BEEN HAVING FREQUENT LOOSE/WATERY STOOL THAT COME WITHOUT WARNING. I SPOKE WITH DR BRAGG AND REQUESTED A RECTAL TUBE FOR THE PATIENTS COMFORT AND SKIN INTEGRITY. DR. BRAGG GAVE ORDERS. RECTAL TUBE PLACED, PATIENT TOLERATED WITHOUT DIFFICULTY. STOOL SPECIMEN COLLECTED AND SENT TO LAB TO BE TESTED FOR CDIFF.
--- NOTE | 2019-07-29 14:47 | NUR ---
CALLED AND TALKED TO DR BRAGG AT 1445 AND HE STATED THAT PATIENT'S C-DIFF TEST RESULTS WERE NEGATIVE.
--- NOTE | 2019-07-29 15:13 | NUR ---
Patient gave permission for care tomorrow. COURTNEY, N
--- NOTE | 2019-07-29 16:24 | NUR ---
Patient is sitting up in bed and alert. Patient tells me about many personal struggles, loss and hurt. Patient shares about his life choices and the ups and downs growing up. I listen empathically, normalize patient's experience, hear confession, explore patient's belief system, and provide grief support, pastoral career and guidance counselor and prayer. Patient responds well and shows signs of restored zechariah. I will continue to remain available to patient and family.
--- NOTE | 2019-07-29 16:41 | NUR ---
SHIFT SUMMARY THE PATIENT HAS HAD A BUSY DAY BETWEEN HIS CT SCAN THIS MORNING AND MULTIPLE WATERY BM'S T/O THE DAY. THE PATIENT WAS PLACED WITH A RECTAL TUBE; HEMMHROIDS AND REDNESS NOTED TO THE RECTUM AREA. THE PATIENTS VITALS HAVE BEEN STABLE. HE CONTINUES ON IV ABX WITHOUT S/SX OF ADVERSE REACTIONS NOTED OR REPORTED. THE PATIENT IS PLEASANT AND COOPERATIVE HOWEVER APPEARS VERY LETHARGIC. THE PATIENT CALLS FOR STAFF ASSIST APPROPRIATELY. WILL CONTINUE TO MONITOR AND PROVIDE CARE NEEDED.
--- NOTE | 2019-07-29 16:49 | NUR ---
INTRODUCED MYSELF TO PATIENT SARITHA STUDENT RN ON 07/29/19 AT 1415 . ASKED PERMISSION OF THE PATIENT TO ASSIST HIM FOR THE SHIFT AND LOOK OVER HIS CHART. PATIENT AGREED.
--- NOTE | 2019-07-29 21:50 | NUR ---
PT'S IV JOHN IN AC IS CURRENTLY IN RT HAND, NOT DOC
--- NOTE | 2019-07-30 02:53 | NUR ---
PT LOST IV ACCESS RT HAND, 4 RN ATTEMPTED IV ACCESS, 6TH ATTEMPT SUCCESSFUL. IV FLAGYL LATE DUE TO NO IV ACCESS, INFUSING NOW
--- NOTE | 2019-07-30 06:41 | NUR ---
pt alert with mild tremors on ciwa less than 7 . He has rectal tube fall out 2nd one and he refused to have it replaced. PT continent of bowel and bladder. DR Villavicencio updated and he gives order to dc rectal tube. PT lost IV access to 4 RNs multiple attempts to restablish IV access. PT had abd ct and had colonoscopy recently. Stools firming up by shifts end. took 2 yogurts on full liquid diet. Medicated for chronic back pain with norco10/325 mg tab one with helpful effect.
[2019-07-30 11:30] LABS: BASOPHILS ABSOLUTE AUTO 0.04 K/mm3 (0.00-0.23); BASOPHILS PERCENT AUTO 0 % (0-2); EOSINOPHILS ABSOLUTE AUTO 0.24 K/mm3 (0.00-0.68); EOSINOPHILS PERCENT AUTO 3 % (0-6); Hematocrit 27.3 % (37.0-53.0); Hemoglobin 9.2 g/dL (13.5-17.5); IMMATURE GRAN ABSOLUTE AUTO 0.48 K/mm3 (0.00-0.10); IMMATURE GRAN PERCENT AUTO 5 % (0-1); LYMPHOCYTES ABSOLUTE AUTO 1.64 K/mm3 (0.84-5.20); LYMPHOCYTES PERCENT AUTO 18 % (21-46); MONOCYTES ABSOLUTE AUTO 0.61 K/mm3 (0.16-1.47); MONOCYTES PERCENT AUTO 7 % (4-13); Mean Corpuscular HGB 33.1 pg (26.0-34.0); Mean Corpuscular HGB Conc 33.7 g/dL (31.5-36.5); Mean Corpuscular Volume 98 fL (80-100); Mean Platelet Volume 9.8 fL (9.1-12.4); NEUTROPHILS ABSOLUTE AUTO 6.27 K/mm3 (1.96-9.15); NEUTROPHILS PERCENT AUTO 68 % (41-73); Platelet Count 392 K/mm3 (150-400); RDW Coefficient Variation 13.5 % (11.7-14.2); RDW Standard Deviation 48.9 fL (35.1-46.3); Red Blood Cell Count 2.78 M/mm3 (4.30-5.90); White Blood Cell Count 9.28 K/mm3 (4.00-11.30)
[2019-07-30 12:03] LABS: Alanine Aminotransfer (ALT/SGP 49 U/L (12-78); Albumin, Blood 1.9 g/dL (3.4-5.0); Albumin/Globulin Ratio 0.6 (0.8-1.8); Alk Phos 79 U/L (50-136); Anion Gap 9 mmol/L (6-16); Aspartate Aminotrans (AST/SGOT 30 U/L (12-37); Bilirubin, Total 0.5 mg/dL (0.1-1.0); Blood Urea Nitrogen 2 mg/dL (8-24); Bun/Creatinine Ratio 2.4 (12.0-20.0); CO2, Blood 18 mmol/L (21-32); Calcium, Blood 7.7 mg/dL (8.5-10.1); Chloride, Blood 113 mmol/L (98-108); Creatinine, Blood 0.83 mg/dL (0.60-1.20); Globulin, Blood 3.4 g/dL (2.2-4.0); Glomerular Filtration Rate >60 (60-); Glucose, Blood 94 mg/dL (70-99); Potassium, Blood 3.3 mmol/L (3.5-5.5); Sodium, Blood 140 mmol/L (136-145); Total Protein, Blood 5.3 g/dL (6.4-8.2)
--- NOTE | 2019-07-30 14:48 | NUR ---
permission for care was given 07/30/2019 at 1430. A and O x3. Groomed. good eye contact.
--- NOTE | 2019-07-30 15:32 | NUR ---
Patient is sitting up in bed and alert. Patient tells me about his medical status and then we talk about healthy plans moving forward. Patient asks about my life and my spiritual journey, which I gladly share. Patient asks me questions about different denominations within the Confucianism zechariah and about the ways he can connect to God on a personal level. I listen empathically and provide companionship, pastoral automobile travel club counselor and prayer. Patient responds well and displays evidence of greater peace. I will continue to remain available to patient and family.
--- NOTE | 2019-07-30 18:08 | NUR ---
HE HAS HAD ATLEAST 5 LIQUID BM'S TODAY, SOMETIMES BLOODY, SOMETIMES NOT.HE AMBULATED IN THE PARRISH X2 TODAY. HE USUALLY USES THE BSC INSTEAD OF THE BATHROOM THOUGH BECAUSE THE BM'S ARE SO URGENT. THE URINE IS MIXED SO ONLY MEASURABLE IF THE STOOL IS VERY SMALL. HE IS A&O BUT SLOW TO ANSWER AND HAS MILD CONFUSION REGARDING HIS CORDS AND LINES. LIBRIUM GIVEN A SCHEDULED MEDICATION BUT TREMOR IS VERY LIGHT. NO PROBLEMS WITH HIS IV SITE TODAY. ONE ANTIBIOTIC DC'D. DIET ADVANCED. NORCO GIVEN FOR BACK PAIN X1.
--- NOTE | 2019-07-30 19:25 | NUR ---
DR Young called to discuss flagyl being resumed orally and that the iv flagyl had been DC on day shift by a PA. He does not want anyone to dc oral flagyl. Add note to order not to dc without discussing with DR Nolasco. PT says he has not been drinking ETOH in months after long abstinence 3 month relapse. Up in room steady gait has order to dc IV fluids.
--- NOTE | 2019-07-31 05:32 | NUR ---
PT alert able to ambulate safely to bathroom. tolerating full liquid diet, advanced to low fiber lactose free cardiac diet this AM. Did take 1 yogurt with pain med. 3 stools tonight firmer. on oral abx to tx gi infection. DR MIREILLE HERRERA. Medicated x 1 with 1 norco for chronic back pain.
--- NOTE | 2019-07-31 09:42 | NUR ---
accidentally acessed this chart 0942 SRHardik Kim
--- NOTE | 2019-07-31 16:12 | NUR ---
PT WOULD LIKE TO WAIT UNTIL HIS BROTHER GETS HERE WITH IS SHOWER ITEMS BEFORE SHOWERING.
[2019-07-31] MEDS ORDERED: AMOCLA875 (16:15)
[2019-07-31] MEDS ORDERED: METR500 PO (16:15)
[2019-07-31] MEDS ORDERED: B-1100 M1 PO (16:16)
[2019-07-31] MEDS ORDERED: Prednisone10 MG PO (16:19)
--- NOTE | 2019-07-31 17:33 | NUR ---
PT DISCHARGED AT 1642, LEFT UNIT VIA WHEELCHAIR. MEDICATIONS FAXED TO [facility]. IV REMOVED. DISCHARGE INSTRUCTIONS REVIEWED.
== END 2019-07-31 16:45 | disposition home or self-care (01) | DRG 391 ==
LOC: ER 14:44 → MEDS 19:57
PROVIDERS: Internal Medicine; Internal Medicine Gastroenterology; Pharmacist Critical Care; Physician Assistant; Student in an Organized Health Care Education/Training Program; ADMIT Hospitalist
PROC: 0DDE8ZX Extraction of Large Intestine, Via Natural or Artificial Opening Endoscopic, Diagnostic (ICD-10-PCS; principal; 2019-07-28 10:00)
DX: A09 Infectious gastroenteritis and colitis, unspecified (principal); G93.41 Metabolic encephalopathy; D62 Acute posthemorrhagic anemia; N17.9 Acute kidney failure, unspecified; E87.1 Hypo-osmolality and hyponatremia; E87.2 Acidosis; Z85.46 Personal history of malignant neoplasm of prostate; F32.9 Major depressive disorder, single episode, unspecified; F17.210 Nicotine dependence, cigarettes, uncomplicated; I10 Essential (primary) hypertension; E87.6 Hypokalemia
CPT/HCPCS: 0097U; 36415; 70450; 71046; 74176; 74177; 74181; 76705; 80048; 80053; 80076; 81001; 82140; 83605; 83735; 83880; 85014; 85018; 85025; 85049; 85610; 85651; 86141; 87040; 88305; 88341; 88342; 94640; 94760; 96360; 97110; 97116; 97162; 97530; 99285-25; A9270; A9270-GY; J0744; J1644; J1650; J2543; J2704; J3475; J3480; J7030; J7120; J7512; Q9967

== ENCOUNTER → 2019-08-16 | Outpatient (CLI) | payer OTHER ==
[~2019-08-16] MED LIST changes: +AMOCLA875; +ATOR40TA PO; +B-1100 M1 PO; +DIAZ5 PO; +DULOXETINE HCL40 MG PO; +FOLI1 PO; +GABAPENTIN600 MG PO; +Heartburn Relie20 MG PO; +METOPROLOL SUCC25 MG PO; +METR500 PO; +Mobic15 MG PO; +NORCO 10-325 T1 EACH PO; +OLANZAPINE15 MG PO; +PREG50 PO; +Prednisone10 MG PO; +UROXATRAL PO
== END | disposition home or self-care (01) ==
LOC: LAB 14:30 → LAB SHORT 14:30
DX: Z51.81 Encounter for therapeutic drug level monitoring (principal); Z79.899 Other long term (current) drug therapy
CPT/HCPCS: G0480

== ENCOUNTER → 2021-09-29 | Outpatient (CLI) | payer OTHER ==
[~2021-09-29] MED LIST changes: +ACET500 PO; +DULO60 PO; +GABA400 PO; +NICO21TP TOP; +OLAN5 PO; +OMEP20ER PO; +Prinivil10 MG PO; +SODCHL1 PO; +TADA10TA; +TOPROL XL25 MG PO; +Voltaren100 GM TOP
[2021-09-29 15:43] LABS: Anion Gap 4 mmol/L (6-16); Blood Urea Nitrogen 5 mg/dL (8-24); Bun/Creatinine Ratio 5.3 (12.0-20.0); CO2, Blood 31 mmol/L (21-32); Calcium, Blood 9.5 mg/dL (8.5-10.1); Chloride, Blood 97 mmol/L (98-108); Creatinine, Blood 0.95 mg/dL (0.60-1.20); Glomerular Filtration Rate >60 (60-); Glucose, Blood 85 mg/dL (70-99); Magnesium, Blood 2.1 mg/dL (1.6-2.4); Phosphorus, Blood 3.5 mg/dL (2.5-4.9); Potassium, Blood 4.6 mmol/L (3.5-5.5); Sodium, Blood 132 mmol/L (136-145)
== END ==
LOC: LAB SHORT 15:03
PROVIDERS: Chiropractor
DX: E87.1 Hypo-osmolality and hyponatremia (principal)
CPT/HCPCS: 80069; 83735

== ENCOUNTER 2022-03-03 04:48 | Inpatient (IN) | payer OTHER ==
[~2022-03-03] VITALS: Ht 182.9 cm; Wt 72.5 kg
[~2022-03-03 04:48] MED LIST changes: -ACET500 PO; -DULO60 PO; -GABA400 PO; -NICO21TP TOP; -OLAN5 PO; -OMEP20ER PO; -Prinivil10 MG PO; -SODCHL1 PO; -TADA10TA; -TOPROL XL25 MG PO; -Voltaren100 GM TOP
[2022-03-03 05:45] LABS: Magnesium, Blood 1.5 mg/dL (1.6-2.4)
[2022-03-03 05:52] LABS: Albumin/Globulin Ratio 1.2 (0.8-1.8); Bilirubin, Total 0.6 mg/dL (0.1-1.0); Creatinine, Blood 0.6 mg/dL (0.60-1.20); Globulin, Blood 3.4 g/dL (2.2-4.0); Potassium, Blood 3.8 mmol/L (3.5-5.5); Total Protein, Blood 7.4 g/dL (6.4-8.2)
[2022-03-03 06:30] LABS: Influenza A, PCR NEGATIVE (NEGATIVE); Influenza B, PCR NEGATIVE (NEGATIVE); Resp Syncytial Virus, PCR NEGATIVE (NEGATIVE); SARS-Cov-2 (COVID-19) PCR, MMC NEGATIVE (NEGATIVE)
[2022-03-03 06:38] LABS: BASOPHILS ABSOLUTE AUTO 0.02 K/mm3 (0.00-0.23); BASOPHILS PERCENT AUTO 0 % (0-2); EOSINOPHILS ABSOLUTE AUTO 0.04 K/mm3 (0.00-0.68); EOSINOPHILS PERCENT AUTO 0 % (0-6); Hematocrit 37.3 % (37.0-53.0); Hemoglobin 13.8 g/dL (13.5-17.5); IMMATURE GRAN ABSOLUTE AUTO 0.04 K/mm3 (0.00-0.10); IMMATURE GRAN PERCENT AUTO 0 % (0-1); LYMPHOCYTES ABSOLUTE AUTO 1.41 K/mm3 (0.84-5.20); LYMPHOCYTES PERCENT AUTO 14 % (21-46); MONOCYTES ABSOLUTE AUTO 0.59 K/mm3 (0.16-1.47); MONOCYTES PERCENT AUTO 6 % (4-13); Mean Corpuscular HGB 32.8 pg (26.0-34.0); Mean Corpuscular Volume 89 fL (80-100); Mean Platelet Volume 9.1 fL (9.1-12.4); NEUTROPHILS PERCENT AUTO 79 % (41-73); NRBC ABSOLUTE 0.07 K/mm3 (0.00-0.02); NRBC Auto 0.7 /100 WBC (0.0-0.2); Platelet Count 330 K/mm3 (150-400); RDW Coefficient Variation 11.8 % (11.7-14.2); RDW Standard Deviation 37.9 fL (35.1-46.3); Red Blood Cell Count 4.21 M/mm3 (4.30-5.90)
[2022-03-03] MEDS ORDERED: Prinivil10 MG PO (07:58)
[2022-03-03] MEDS ORDERED: FOLI1 PO (07:58)
[2022-03-03] MEDS ORDERED: ATOR40TA PO (07:58)
[2022-03-03] MEDS ORDERED: TOPROL XL25 MG PO (07:58)
[2022-03-03] MEDS ORDERED: OLAN10 PO (07:59)
[2022-03-03] MEDS ORDERED: DULO60 PO (07:59)
[2022-03-03] MEDS ORDERED: OMEP20ER PO (07:59)
[2022-03-03] MEDS ORDERED: DIAZ5 PO (07:59)
[2022-03-03] MEDS ORDERED: GABA400 PO (08:00)
[2022-03-03] MEDS ORDERED: Voltaren100 GM TOP (08:02)
[2022-03-03] MEDS ORDERED: TADA10TA (08:02)
[2022-03-03] MEDS ORDERED: ACET500 PO (08:03)
[2022-03-03 08:32] LABS: Source, Urine Clean Catch
[2022-03-03 08:55] LABS: Albumin, Blood 3.9 g/dL (3.4-5.0); Anion Gap 9 mmol/L (6-16); Blood Urea Nitrogen 3 mg/dL (8-24); CO2, Blood 23 mmol/L (21-32); Chloride, Blood 82 mmol/L (98-108); Creatinine, Blood 0.61 mg/dL (0.60-1.20); Glomerular Filtration Rate 109 (60-); Glucose, Blood 108 mg/dL (70-99); Phosphorus, Blood 1.8 mg/dL (2.5-4.9); Potassium, Blood 3.6 mmol/L (3.5-5.5); Sodium, Blood 114 mmol/L (136-145)
[2022-03-03 09:35] LABS: Appearance, Urine Clear (Clear); Bilirubin, Urine Neg (Neg); Blood, Urine 1+ (Neg); Color, Urine Yellow (P-Yellow); Glucose Qualitative, Urine Neg (Neg); Ketones, Urine 1+ (Neg); Leukocyte Esterase, Urine Neg (Neg); Nitrite, Urine Neg (Neg); Protein, Urine 1+ (Neg); Urobilinogen, Urine NORM (Normal)
--- NOTE | 2022-03-03 09:43 | NUR ---
PT ADMITTED TO ICU AT 0922 FOR HYPONATREMIA. PT WIDE AWAKE AND ORIENTED. ABLE TO STAND AND TRANSFER TO BED. C/O 01/23 CHRONIC PAIN TO LOWER BACK, PT STATES HE TAKES NORCO 10/ FOUR/DAY FOR PAIN. PT C/O CHAVEZ 11/23. DENIES NAUSEA, LAST VOMITED AT 0500. PT SINUS, RATE 80'S, BP 166/95. SATS 97-98 ON RA, DENIES SOB. NS STARTED AT 150CC/HR.
[2022-03-03 09:49] LABS: Bacteria Rare /hpf; Red Blood Cells, Urine 0-2 /hpf (0-2); Squamous Epithelial Cells Rare /hpf (Few); White Blood Cells, Urine 0-2 /hpf (0-5)
[2022-03-03] MEDS ORDERED: HYDACE10B PO (09:52)
--- NOTE | 2022-03-03 10:40 | NUR ---
DR WATERMAN IN TO SEE PT. CONSULT ORDERED FOR DR MERIDA TO SEE PT, DR MERIDA AT BEDSIDE SHORTLY AFTER. LABS DRAWN. NS DECREASED TO 50CC/HR PER DR MERIDA. WILL CALL W SODIUM RESULTS.
[2022-03-03 11:19] LABS: Magnesium, Blood 2.2 mg/dL (1.6-2.4); Thyroid Stimulating Hormone 0.571 uIU/mL (0.360-4.800); Uric Acid, Blood 2.1 mg/dL (3.5-7.2)
[2022-03-03 11:29] LABS: Albumin, Blood 3.8 g/dL (3.4-5.0); Anion Gap 10 mmol/L (6-16); Blood Urea Nitrogen 3 mg/dL (8-24); Bun/Creatinine Ratio 5.4 (12.0-20.0); CO2, Blood 23 mmol/L (21-32); Calcium, Blood 8.6 mg/dL (8.5-10.1); Chloride, Blood 85 mmol/L (98-108); Creatinine, Blood 0.56 mg/dL (0.60-1.20); Glomerular Filtration Rate 112 (60-); Glucose, Blood 110 mg/dL (70-99); Phosphorus, Blood 2.2 mg/dL (2.5-4.9); Potassium, Blood 3.8 mmol/L (3.5-5.5); Sodium, Blood 118 mmol/L (136-145)
[2022-03-03 11:30] LABS: Osmolality, Serum 237 mos/KG (275-300)
--- NOTE | 2022-03-03 11:43 | NUR ---
NA [address] MERIDA, NEW ORDERS PLACED.
--- NOTE | 2022-03-03 12:45 | NUR ---
NA PHOS 20MMOL IS ON HOLD FOR NOW PER PHARMACIST AND DR MERIDA. PT HAS 1L FLUID RESTRICTION. NS IV FLUIDS HAVE BEEN DC'D. SODIUM CHLORIDE TAB GIVEN PER DR MERIDA.
--- NOTE | 2022-03-03 14:33 | NUR ---
Spiritual Care Request. Pt. is awake in bed and welcomes my visit. Pt. is pleasant, and rapport is quickly established. Pt. displays evidence of being engaged and alert. Prayed with Pt. Pt. verbalized grtaitude for the spiritual care visit.
--- NOTE | 2022-03-03 14:34 | NUR ---
NA CALLED IN TO DR MERIDA, SEE NEW ORDERS
--- NOTE | 2022-03-03 14:40 | NUR ---
PT HAS HAD 2675 OUT IN URINE, DR MERIDA NOTIFIED, SEE BNEW ORDERS. D5W AT 50 TO START, STAT RENAL U/S ORDERED.
--- NOTE | 2022-03-03 15:52 | NUR ---
LABS CALLED TO DR MERIDA, FLUID RESTRICTION DC'D
--- NOTE | 2022-03-03 17:20 | NUR ---
TRANSFER NOTE THIS RN CALLED FOR REPORT FOR THIS PATIENT FROM MONROE AGUILERA. PATIENT TRANSFERRED TO VIA WHEELCHAIR. IV FLUIDS CONTINUING AT 75MLS/HR. PATIENT'S VITALS TAKEN AND STABLE. NOTED HTN THAT HAS BEEN NORMAL FOR PATIENT WHILE HOSPITALIZED. NA LAB CAME BACK AT 122. WILLY CHILDRESS TO CALL MAGNOLIA AGUILERA FOR THIS NURSE TO GET NEW ORDERS. PATIENT UP IN BED EATING. THIS RN TO COMPLETE ADMISSION HX AFTER PATIENT FINISHES EATING. PATIENT STATES BACK PAIN IS NOW MILD AFTER NORCO MEDICATION ADMINISTRATION. DENIES N/V/D. WILL CONTINUE TO MONITOR UNTIL SHIFT CHANGE AT 1900 AND FOLLOW ORDERS PER MAGNOLIA CRYSTAL. BED IN LOWEST POSITION AND CALL LIGHT WITHIN REACH.
--- NOTE | 2022-03-03 17:27 | NUR ---
PATIENT UPDATE CALL FROM MONROE CONTRERAS RN WHO PLACED THE CALL TO MAGNOLIA CRYSTAL PREVIOUSLY REGARDING NEW SODIUM LEVEL OF 122. MONROE AGUILERA TOLD THIS NURSE ABOUT THE NEW ORDERS TO INCREASE D5W TO 125MLS/HR AND DO ANOTHER STAT SODIUM CHECK AT 1900, AND FOR THE EVENING SHIFT RN TO CALL MAGNOLIA WITH RESULTS BEFORE 1999. MONROE AGUILERA STATED THAT SHE WOULD PUT THE ORDERS IN.
--- NOTE | 2022-03-03 17:27 | NUR ---
DR MERIDA CALLED W RESULTS, D5W INCREASED TO 125CC/HR. REPEAT LABS ORDERED FOR 1900. DIGITAL ADVISOR UPDATED.
[2022-03-04 04:26] LABS: Albumin, Blood 3.7 g/dL (3.4-5.0); Albumin/Globulin Ratio 1.1 (0.8-1.8); Bilirubin, Total 0.4 mg/dL (0.1-1.0); Bun/Creatinine Ratio 7.3 (12.0-20.0); Calcium, Blood 8.8 mg/dL (8.5-10.1); Creatinine, Blood 0.82 mg/dL (0.60-1.20); Globulin, Blood 3.3 g/dL (2.2-4.0); Potassium, Blood 3.4 mmol/L (3.5-5.5)
--- NOTE | 2022-03-04 05:31 | NUR ---
SHIFT SUMMARY NO ACUTE CHANGES THIS SHIFT. D5W GTT BEING TITRATED PER MAGNOLIA TO ACCOMMODATE SODIUM RISE. NO NEURO CHANGES. IN SR. BP STABLE. VOIDING OFTEN. AXO. INDEPENDENT. POWERGLIDE PATENT. OTHERWISE, PT RESTING OFF AND ON.
[2022-03-04 05:39] LABS: Magnesium, Blood 2.2 mg/dL (1.6-2.4); Phosphorus, Blood 2.7 mg/dL (2.5-4.9)
--- NOTE | 2022-03-04 10:17 | NUR ---
CARE ASSUMPTION THIS RN ASSUMED CARE FROM KIMBERLY AGUILERA AT 0700. VSS. TELE SR 85. PATIENT IS ALERT AND ORIENTED X4. PERRLA. NEURO INTACT. PATIENT REPORTS NO PAIN. PATIENT REPORTS NO CHEST PAIN/PRESSURE. STRONG RADIAL AND PEDIS PULSES BILATERALLY. NO EDEMA NOTED. PATIENT REPROTS NO SHORNTESS OF BREATH. LUNG SOUNDS CLEAR THROUGHOUT. PATIENT ABD IS SOFT NONTENDER AND ACTIVE. VOIDS INDEPDENTLY. SKIN CLEAN DRY AND INTACT. SEE SHIFT ASSESSMENT FOR FURTHER DETAILS. PATIENT WORKED WITH PHYSICAL THERAPY THIS AM AND HAS BEEN MOVING HIMSELF FROM BED TO BEDSIDE CHAIR THIS MORNING. PLAN OF CARE IS UP TO DATE AT THIS TIME. CALL LIGHT WITHIN REACH.
--- NOTE | 2022-03-04 16:55 | NUR ---
SHIFT SUMMARY PATIENT NEURO REMAINS INTACT. PATIENT IS ONE A 1L FLUID RESTRICTION THAT STARTED THIS AFTERNOON. NO ACUTE CHANGES THIS SHIFT. GOOD OUTPUT. WILL NOTIFY MD MERIDA OF MOST RECENT SODIUM LEVEL ONCE THEY COME IN. PATIENT HAS HAD VISTORS THROUGHOUT THE DAY. PLAN OF CARE UP TO DATE. CALL LIGHT WITHIN REACH AND BED IN LOWEST POSITIOIN. WILL CONINTUE TO MONITOR AND PROVIDE CARE UNTIL HAND OFF WITH NEXT SHIFT,
--- NOTE | 2022-03-04 22:00 | NUR ---
CALL TO DR. Teo MERIDA PER HIS REQUEST. SERUM SODIUM INCREASED FROM 124 TO 125. ORDERS RECEIVED FOR AN ADDITIONAL 1 GM TABLET OF SODIUM CHLORIDE TO BE GIVEN NOW, AND FOR SERUM SODIUM RE-CHECK AT 03:[address] MERIDA REQUESTED A CALL BY 0400 FOR THE RESULTS OF THE 03:00 LAB DRAW.
[2022-03-05 03:31] LABS: BASOPHILS ABSOLUTE AUTO 0.01 K/mm3 (0.00-0.23); BASOPHILS PERCENT AUTO 0 % (0-2); EOSINOPHILS ABSOLUTE AUTO 0.01 K/mm3 (0.00-0.68); EOSINOPHILS PERCENT AUTO 0 % (0-6); Hemoglobin 13.4 g/dL (13.5-17.5); IMMATURE GRAN ABSOLUTE AUTO 0.02 K/mm3 (0.00-0.10); IMMATURE GRAN PERCENT AUTO 0 % (0-1); LYMPHOCYTES ABSOLUTE AUTO 2.48 K/mm3 (0.84-5.20); LYMPHOCYTES PERCENT AUTO 29 % (21-46); MONOCYTES ABSOLUTE AUTO 0.62 K/mm3 (0.16-1.47); MONOCYTES PERCENT AUTO 7 % (4-13); Mean Corpuscular HGB 33.7 pg (26.0-34.0); Mean Corpuscular HGB Conc 35.3 g/dL (31.5-36.5); Mean Platelet Volume 8.8 fL (9.1-12.4); NEUTROPHILS ABSOLUTE AUTO 5.55 K/mm3 (1.96-9.15); NEUTROPHILS PERCENT AUTO 64 % (41-73); Platelet Count 303 K/mm3 (150-400); RDW Coefficient Variation 12.9 % (11.7-14.2); RDW Standard Deviation 45.8 fL (35.1-46.3); Red Blood Cell Count 3.98 M/mm3 (4.30-5.90); White Blood Cell Count 8.69 K/mm3 (4.00-11.30)
[2022-03-05 03:32] LABS: Mean Corpuscular Volume 96 fL (80-100)
[2022-03-05 03:48] LABS: Albumin, Blood 3.6 g/dL (3.4-5.0); Anion Gap 5 mmol/L (6-16); Blood Urea Nitrogen 8 mg/dL (8-24); Bun/Creatinine Ratio 8.9 (12.0-20.0); CO2, Blood 27 mmol/L (21-32); Calcium, Blood 8.9 mg/dL (8.5-10.1); Chloride, Blood 96 mmol/L (98-108); Glomerular Filtration Rate 97 (60-); Glucose, Blood 89 mg/dL (70-99); Magnesium, Blood 2.1 mg/dL (1.6-2.4); Phosphorus, Blood 2.7 mg/dL (2.5-4.9); Potassium, Blood 4.5 mmol/L (3.5-5.5); Sodium, Blood 128 mmol/L (136-145)
--- NOTE | 2022-03-05 04:03 | NUR ---
CALL TO DR. MERIDA PER HIS REQUEST. REVIEW OF CHEMISTRY LABS - SERUM SODIUM INCREASED FROM 125 TO 128. ALSO CLARIFIED ORDER FOR FLUID RESTRICTION OF 1000 mL IS FOR ALL FLUID INTAKE VS JUST FREE WATER. IT IS FOR ALL FLUID INTAKE
--- NOTE | 2022-03-05 10:22 | NUR ---
ASSUMPTION OF CARE BERNARD AGUILERA AND MAYA AGUILERA ASSUMED CARE OF PATIENT AT 0700. REPORT RECEIVED FROM VARINDER AGUIELRA. PT RESTING COMFORTABLY IN BED. FLUID RESTRICTION OF 1000ML TOTAL A DAY IN EFFECT; 700 MLS FOR THIS SHIFT. VSS. PATIENT CHANGED TO MEDICAL STATUS WITH NO TELEMETRY.
--- NOTE | 2022-03-05 13:35 | NUR ---
DR MERIDA CALLED WITH REPEAT SODIUM RESULTS, NEW ORDER FOR ADDITIONAL DRAW AT 2000 TONIGHT.
--- NOTE | 2022-03-05 16:50 | NUR ---
SHIFT SUMMARY PATIENT IS A&O X4. NO COMPLAINTS OF PAIN TODAY. VITALS STABLE AND PATIENT WAS CHANGED TO MEDICAL STATUS WITHOUT TELEMETRY THIS AM. PATIENT'S SODIUM IS NOW AT 131. MAGNOLIA CRYSTAL WITH ORDERS TO CONTINUE SALT TABS AND DRAW BLOOD AT 2000 AND CALL MAGNOLIA WITH RESULTS BEFORE 2100. CARIDAD RECEIVED A SHOWER THIS AM AND HAS BEEN INCREASINGLY MORE ACTIVE THROUGHOUT THE DAY. PATIENT CONTINUES TO BE ON A FLUID RESTRICTION OF 1000MLS A DAY WITH ONLY 700 MLS ALLOWED DURING THIS SHIFT. NO ACUTE EVENTS DURING THE SHIFT. PATIENT CALLS APPROPRIATELY AND IS INDEPENDENT IN ROOM. WILL CONTINUE TO MONITOR PATIENT UNTIL SHIFT CHANGE AT 1900.
--- NOTE | 2022-03-05 17:57 | NUR ---
PT ARRIVED TO UNIT FROM PCU. PT ALERT AND ORIENTED, FOLLOWS COMMANDS. PT INDEPENDENT. 1L FLUID RESTRICTION, I/OS. REPEAT SODIUM LEVELS SCHEDULED. NO NEEDS VOICED, CALL LIGHT WITHIN REACH.
--- NOTE | 2022-03-06 03:15 | NUR ---
SHIFT SUMMARY; PATIENT STILL EXPRESSES HE IS VERY WEAK. PATIENT IS AO X 4. INDEPENDANT TO BATHROOM. [address]RI[address] IN [address]. HIS LUNGS HAVE WHEEZES NOTED IN UPPER LOBES THIS EVENING AND ALSO DIM IN THE BASES. HE IS PLEASANT AND COOPERATIVE WITH CARE. TAKING MEDICATIONS WHOLE WITH WATER. NO SKIN ISSUES ARE NOTED. WILL REMAIN AVAILABLE FOR THIS PATIENT FOR ANY WANTS OR NEEDS THAT ARISE PRIOR TO SHIFT CHANGE AND REPORT
[2022-03-06 05:17] LABS: Hemoglobin 13.3 g/dL (13.5-17.5)
[2022-03-06 05:34] LABS: Albumin, Blood 3.7 g/dL (3.4-5.0); Anion Gap 9 mmol/L (6-16); Blood Urea Nitrogen 11 mg/dL (8-24); Bun/Creatinine Ratio 12.1 (12.0-20.0); CO2, Blood 25 mmol/L (21-32); Calcium, Blood 9.2 mg/dL (8.5-10.1); Chloride, Blood 97 mmol/L (98-108); Creatinine, Blood 0.91 mg/dL (0.60-1.20); Glomerular Filtration Rate 96 (60-); Glucose, Blood 78 mg/dL (70-99); Phosphorus, Blood 2.8 mg/dL (2.5-4.9); Potassium, Blood 4.2 mmol/L (3.5-5.5); Sodium, Blood 131 mmol/L (136-145)
[2022-03-06] MEDS ORDERED: OLAN5 PO (17:24)
[2022-03-06] MEDS ORDERED: SODCHL1 PO (17:25)
[2022-03-06] MEDS ORDERED: NICO21TP TOP (17:25)
== END 2022-03-06 17:39 | disposition home or self-care (01) | DRG 641 ==
LOC: ER 04:48 → ICUW 07:13 → MEDS 07:13 → ICUW 09:17 → PCU 09:31 → ICUW 16:26 → PCU 17:11 → MEDS 03-05 17:47
PROVIDERS: Internal Medicine Nephrology; Student in an Organized Health Care Education/Training Program; ADMIT Family Medicine
DX: E87.1 Hypo-osmolality and hyponatremia (principal); J44.1 Chronic obstructive pulmonary disease with (acute) exacerbation; F41.9 Anxiety disorder, unspecified; E78.5 Hyperlipidemia, unspecified; Z20.822 Contact with and (suspected) exposure to COVID-19; I10 Essential (primary) hypertension; G89.29 Other chronic pain; Z79.899 Other long term (current) drug therapy; E87.6 Hypokalemia; K21.9 Gastro-esophageal reflux disease without esophagitis; D64.9 Anemia, unspecified; E83.39 Other disorders of phosphorus metabolism; E83.42 Hypomagnesemia; F32.9 Major depressive disorder, single episode, unspecified; F17.210 Nicotine dependence, cigarettes, uncomplicated; Z85.46 Personal history of malignant neoplasm of prostate
CPT/HCPCS: 0241U; 36415; 71045; 76770; 80053; 80069; 81001; 83735; 83880; 83930; 83935; 84100; 84145; 84295; 84300; 84443; 84484; 84550; 85014; 85018; 85025; 87449; 93005; 93010; 94640; 94664; 94760; 96365; 96375; 97110; 97116; 97162; 97530; 99285-25; A9270; C1751; J0360; J1650; J1885; J2765; J3475; J7030; J7042; J7070; J7512

== ENCOUNTER 2024-03-24 09:45 | Inpatient (IN) | payer OTHER ==
[~2024-03-24] VITALS: Ht 182.9 cm; Wt 66.0 kg
[~2024-03-24 09:45] MED LIST changes: +ACET500 PO; +DULO60 PO; +GABA400 PO; +NICO21TP TOP; +OLAN5 PO; +OMEP20ER PO; +Prinivil10 MG PO; +SODCHL1 PO; +TADA10TA; +TOPROL XL25 MG PO; +Voltaren100 GM TOP
[2024-03-24 10:57] LABS: BASOPHILS ABSOLUTE AUTO 0.02 K/mm3 (0.00-0.23); BASOPHILS PERCENT AUTO 0 % (0-2); EOSINOPHILS ABSOLUTE AUTO 0.01 K/mm3 (0.00-0.68); EOSINOPHILS PERCENT AUTO 0 % (0-6); Hematocrit 33.5 % (37.0-53.0); Hemoglobin 11.9 g/dL (13.5-17.5); IMMATURE GRAN ABSOLUTE AUTO 0.04 K/mm3 (0.00-0.10); IMMATURE GRAN PERCENT AUTO 0 % (0-1); LYMPHOCYTES ABSOLUTE AUTO 1.03 K/mm3 (0.84-5.20); LYMPHOCYTES PERCENT AUTO 9 % (21-46); MONOCYTES ABSOLUTE AUTO 0.39 K/mm3 (0.16-1.47); MONOCYTES PERCENT AUTO 3 % (4-13); Mean Corpuscular HGB 32.7 pg (26.0-34.0); Mean Corpuscular HGB Conc 35.5 g/dL (31.5-36.5); Mean Corpuscular Volume 92 fL (80-100); NEUTROPHILS ABSOLUTE AUTO 10.66 K/mm3 (1.96-9.15); NEUTROPHILS PERCENT AUTO 88 % (41-73); Platelet Count 304 K/mm3 (150-400); RDW Coefficient Variation 12.3 % (11.7-14.2); RDW Standard Deviation 41.4 fL (35.1-46.3); Red Blood Cell Count 3.64 M/mm3 (4.30-5.90); White Blood Cell Count 12.15 K/mm3 (4.00-11.30)
[2024-03-24 11:16] LABS: Albumin, Blood 3.6 g/dL (3.4-5.0); Bilirubin, Total 0.4 mg/dL (0.1-1.0); Bun/Creatinine Ratio 7.2 (12.0-20.0); Calcium, Blood 9.3 mg/dL (8.5-10.1); Creatinine, Blood 0.69 mg/dL (0.60-1.20); Globulin, Blood 3.6 g/dL (2.2-4.0); Potassium, Blood 3.8 mmol/L (3.5-5.5); Total Protein, Blood 7.2 g/dL (6.4-8.2)
[2024-03-24 11:24] LABS: Influenza A, PCR NEGATIVE (NEGATIVE); Influenza B, PCR NEGATIVE (NEGATIVE); Resp Syncytial Virus, PCR NEGATIVE (NEGATIVE)
[2024-03-24 11:25] LABS: SARS-Cov-2 (COVID-19) PCR, MMC POSITIVE (NEGATIVE)
[2024-03-24] MEDS ORDERED: NS 500 ML IV SCH (12:55)
[2024-03-24] MEDS ORDERED: Acetaminophen 325 MG TABLET PO PRN (16:20)
[2024-03-24] MEDS ORDERED: Ondansetron 4 MG TAB PO PRN (16:20)
[2024-03-24] MEDS ORDERED: Nicotine 21 MG PATCH TOP ONE (16:45)
[2024-03-24] MEDS ORDERED: Ascorbic Acid 500 MG Tab PO SCH (17:00)
[2024-03-24 17:30] LABS: Calcium, Blood 8.7 mg/dL (8.5-10.1); Creatinine, Blood 0.67 mg/dL (0.60-1.20); Potassium, Blood 4.2 mmol/L (3.5-5.5)
[2024-03-24 18:17] VITALS: BP 164/91
[2024-03-24] MEDS ORDERED: TAMS.4ER PO (18:20)
[2024-03-24] MEDS ORDERED: PREG100 PO (18:20)
[2024-03-24] MEDS ORDERED: HYDROcodone 10-APAP 325 TAB PO PRN (19:40)
[2024-03-24] MEDS ORDERED: Diazepam 5 MG Tab PO SCH (21:00)
[2024-03-24] MEDS ORDERED: Melatonin 5 MG Tablet PO SCH (21:00)
[2024-03-25 03:41] VITALS: BP 161/79
[2024-03-25] MEDS ORDERED: NS 1,000 ML IV SCH (05:25)
--- NOTE | 2024-03-25 05:56 | NUR ---
SHIFT SUMMARY PT A&OX4 AND ANSWERS QUESTIONS APPROPRIATELY. ORDERED PT MEDICATIONS FROM HOME RX. SCHEDULED AND PRN MEDICATIONS ADMINISTERED. PT AMBULATED SBA TO BATHROOM WITHOUT ADVERSE EVENTS. VSS, NO COMPLAINTS OF CP/PRESSURE OR SOB. PT SPENT MOST OF SHIFT IN BED WITH EYES CLOSED AND RESPIRATIONS EVEN AND UNLABORED. NO ACUTE EVENTS AT THIS TIME. PT LEFT IN A POSITION OF SAFETY WITH PROPER FALL PRECAUTIONS IN PLACE, PT REPOSITIONED INDEPENDENTLY, CALL LIGHT IN REACH.
[2024-03-25 06:48] LABS: BASOPHILS ABSOLUTE AUTO 0.01 K/mm3 (0.00-0.23); BASOPHILS PERCENT AUTO 0 % (0-2); EOSINOPHILS ABSOLUTE AUTO 0.03 K/mm3 (0.00-0.68); EOSINOPHILS PERCENT AUTO 1 % (0-6); Hematocrit 32.9 % (37.0-53.0); Hemoglobin 11.5 g/dL (13.5-17.5); IMMATURE GRAN ABSOLUTE AUTO 0.01 K/mm3 (0.00-0.10); IMMATURE GRAN PERCENT AUTO 0 % (0-1); LYMPHOCYTES ABSOLUTE AUTO 1.18 K/mm3 (0.84-5.20); LYMPHOCYTES PERCENT AUTO 20 % (21-46); MONOCYTES ABSOLUTE AUTO 0.39 K/mm3 (0.16-1.47); MONOCYTES PERCENT AUTO 7 % (4-13); Mean Corpuscular HGB 32.4 pg (26.0-34.0); Mean Corpuscular Volume 93 fL (80-100); Mean Platelet Volume 9.1 fL (9.1-12.4); NEUTROPHILS ABSOLUTE AUTO 4.31 K/mm3 (1.96-9.15); NEUTROPHILS PERCENT AUTO 73 % (41-73); Platelet Count 255 K/mm3 (150-400); RDW Coefficient Variation 12.5 % (11.7-14.2); RDW Standard Deviation 42.3 fL (35.1-46.3); Red Blood Cell Count 3.55 M/mm3 (4.30-5.90); White Blood Cell Count 5.93 K/mm3 (4.00-11.30)
[2024-03-25 07:13] LABS: Albumin, Blood 3.4 g/dL (3.4-5.0); Bilirubin, Total 0.5 mg/dL (0.1-1.0); Bun/Creatinine Ratio 7.7 (12.0-20.0); Calcium, Blood 9.4 mg/dL (8.5-10.1); Creatinine, Blood 0.65 mg/dL (0.60-1.20); Globulin, Blood 3.3 g/dL (2.2-4.0); Magnesium, Blood 1.7 mg/dL (1.6-2.4); Potassium, Blood 3.9 mmol/L (3.5-5.5); Total Protein, Blood 6.7 g/dL (6.4-8.2)
[2024-03-25 07:41] VITALS: BP 152/82
[2024-03-25] MEDS ORDERED: Cholecalciferol 1000 Unit Tablet (=25MCG) PO SCH (09:00)
[2024-03-25] MEDS ORDERED: Zinc Sulfate 220 MG Cap (Provides 50MG) PO SCH (09:00)
[2024-03-25] MEDS ORDERED: Enoxaparin 40 MG/0.4 ML SYR SC SCH (09:00)
[2024-03-25] MEDS ORDERED: Nicotine 21 MG PATCH TOP SCH (09:00)
[2024-03-25 15:40] VITALS: BP 149/87
--- NOTE | 2024-03-25 18:20 | NUR ---
SHIFT SUMMARY- PT ALERT, ORIENTED AND INDEPENDENT IN THE ROOM. HE HAS HAD NO ACUTE CHANGE T/O THE SHIFT. PT CALLS APPROPRIATELY. PT SITTING UP IN BED, CALL LIGHT IN REACH NO S&S OF DISTRESS NOTED. PT TESTED POSSITIVE FOR COVID ON ADMIT DROPLET ISOLATION FOR COVID.
[2024-03-25 19:43] VITALS: BP 154/83
[2024-03-26 03:50] VITALS: BP 154/86
[2024-03-26 05:31] LABS: BASOPHILS ABSOLUTE AUTO 0.02 K/mm3 (0.00-0.23); BASOPHILS PERCENT AUTO 0 % (0-2); EOSINOPHILS ABSOLUTE AUTO 0.02 K/mm3 (0.00-0.68); EOSINOPHILS PERCENT AUTO 0 % (0-6); Hematocrit 31.4 % (37.0-53.0); Hemoglobin 10.9 g/dL (13.5-17.5); IMMATURE GRAN ABSOLUTE AUTO 0.01 K/mm3 (0.00-0.10); IMMATURE GRAN PERCENT AUTO 0 % (0-1); LYMPHOCYTES ABSOLUTE AUTO 1.41 K/mm3 (0.84-5.20); LYMPHOCYTES PERCENT AUTO 25 % (21-46); MONOCYTES ABSOLUTE AUTO 0.45 K/mm3 (0.16-1.47); MONOCYTES PERCENT AUTO 8 % (4-13); Mean Corpuscular HGB 32.4 pg (26.0-34.0); Mean Corpuscular HGB Conc 34.7 g/dL (31.5-36.5); Mean Corpuscular Volume 94 fL (80-100); Mean Platelet Volume 9.3 fL (9.1-12.4); NEUTROPHILS ABSOLUTE AUTO 3.79 K/mm3 (1.96-9.15); NEUTROPHILS PERCENT AUTO 66 % (41-73); Platelet Count 246 K/mm3 (150-400); RDW Coefficient Variation 12.8 % (11.7-14.2); RDW Standard Deviation 43.8 fL (35.1-46.3); Red Blood Cell Count 3.36 M/mm3 (4.30-5.90)
[2024-03-26 06:05] LABS: Albumin, Blood 3.3 g/dL (3.4-5.0); Bilirubin, Total 0.4 mg/dL (0.1-1.0); Bun/Creatinine Ratio 6.5 (12.0-20.0); Calcium, Blood 9.2 mg/dL (8.5-10.1); Creatinine, Blood 0.77 mg/dL (0.60-1.20); Globulin, Blood 3.3 g/dL (2.2-4.0); Potassium, Blood 3.4 mmol/L (3.5-5.5); Total Protein, Blood 6.6 g/dL (6.4-8.2)
--- NOTE | 2024-03-26 06:34 | NUR ---
SPORTS INSTRUCTOR SUMMARY NO ACUTE EVENTS OVERNIGHT. PT REMAINED STABLE, SEE ASSESSMENT FLOWSHEET AND VITAL SIGNS. CALL LIGHT WITHIN REACH.
[2024-03-26 07:51] VITALS: BP 137/85
[2024-03-26] MEDS ORDERED: Sodium Chloride 1 GM TAB PO SCH (08:00)
[2024-03-26] MEDS ORDERED: Potassium Chloride 20 MEQ TabCR PO ONE (10:30)
[2024-03-26] MEDS ORDERED: SODCHL1 PO (13:29)
[2024-03-26] MEDS ORDERED: ALBU90OI INH (13:30)
--- NOTE | 2024-03-26 16:08 | NUR ---
PT DISCHARGED AT 1405 AOX4. PT HAD ALL PAPERWORK REVIEWED AND EDUCATIONAL MATERIAL SENT WITH PT. PT HAD FRIEND TO TRANSPORT HOME. PT INDEPENDENT IN ROOM. ALL PERSONAL BELONGINGS COLLECTED AND PT ESCORTED DOWN TO N ENTRANCE VIA WHEEL CHAIR.
== END 2024-03-26 14:15 | disposition home or self-care (01) | DRG 640 ==
LOC: ER 09:45 → MEDS 17:40
PROVIDERS: Emergency Medicine; Family Medicine; ADMIT Internal Medicine
PROC: 8E0ZXY6 Isolation (ICD-10-PCS; principal; 2024-03-24)
DX: E87.1 Hypo-osmolality and hyponatremia (principal); U07.1 COVID-19; I10 Essential (primary) hypertension; Z66 Do not resuscitate; F41.9 Anxiety disorder, unspecified; F32.9 Major depressive disorder, single episode, unspecified; F17.210 Nicotine dependence, cigarettes, uncomplicated; M54.9 Dorsalgia, unspecified; E86.0 Dehydration; G89.4 Chronic pain syndrome; M54.16 Radiculopathy, lumbar region; F41.8 Other specified anxiety disorders; D64.9 Anemia, unspecified; F10.20 Alcohol dependence, uncomplicated; J44.9 Chronic obstructive pulmonary disease, unspecified; Z91.148 Patient's other noncompliance with medication regimen for other reason; Z85.46 Personal history of malignant neoplasm of prostate; Z90.79 Acquired absence of other genital organ(s); Z98.890 Other specified postprocedural states; Z79.899 Other long term (current) drug therapy
CPT/HCPCS: 0241U; 36415; 71045; 80048; 80053; 83735; 84300; 85025; 96360; 99285-25; A9270; J1650; J7030

== ENCOUNTER 2024-11-08 18:46 | Inpatient (IN) | payer OTHER ==
[~2024-11-08] VITALS: Ht 182.9 cm; Wt 64.0 kg
[~2024-11-08 18:46] MED LIST changes: +ALBU90OI INH; +PREG100 PO; +TAMS.4ER PO
[2024-11-08] MEDS ORDERED: PROPRANOLOL HC120 MG PO (19:19)
[2024-11-08] MEDS ORDERED: Ipratropium/Albuterol SulF 2.5-0.5MG/3 ML Amp INH PRN (19:20)
[2024-11-08 19:50] LABS: BASOPHILS ABSOLUTE AUTO 0.03 K/mm3 (0.00-0.23); BASOPHILS PERCENT AUTO 0 % (0-2); EOSINOPHILS ABSOLUTE AUTO 0.08 K/mm3 (0.00-0.68); EOSINOPHILS PERCENT AUTO 1 % (0-6); Hematocrit 40.4 % (37.0-53.0); Hemoglobin 13.7 g/dL (13.5-17.5); IMMATURE GRAN ABSOLUTE AUTO 0.03 K/mm3 (0.00-0.10); IMMATURE GRAN PERCENT AUTO 0 % (0-1); LYMPHOCYTES ABSOLUTE AUTO 1.99 K/mm3 (0.84-5.20); LYMPHOCYTES PERCENT AUTO 18 % (21-46); MONOCYTES ABSOLUTE AUTO 0.33 K/mm3 (0.16-1.47); MONOCYTES PERCENT AUTO 3 % (4-13); Mean Corpuscular HGB Conc 33.9 g/dL (31.5-36.5); Mean Corpuscular Volume 97 fL (80-100); NEUTROPHILS ABSOLUTE AUTO 8.38 K/mm3 (1.96-9.15); NEUTROPHILS PERCENT AUTO 77 % (41-73); Platelet Count 297 K/mm3 (150-400); RDW Standard Deviation 43.7 fL (35.1-46.3); Red Blood Cell Count 4.15 M/mm3 (4.30-5.90); White Blood Cell Count 10.84 K/mm3 (4.00-11.30)
[2024-11-08 20:07] LABS: Base Excess Venous 3.2 mmol/L; Bicarbonate Venous 25.2 mmol/L (24.0-30.0); PCO2 Venous 56.7 mmHg (38-42); pH Blood Venous 7.32 (7.34-7.37)
[2024-11-08 20:12] LABS: Albumin, Blood 3.8 g/dL (3.4-5.0); Albumin/Globulin Ratio 0.9 (0.8-1.8); Bilirubin, Total 0.2 mg/dL (0.1-1.0); Bun/Creatinine Ratio 9.4 (12.0-20.0); Calcium, Blood 9.5 mg/dL (8.5-10.1); Creatinine, Blood 0.85 mg/dL (0.60-1.20); Globulin, Blood 4.1 g/dL (2.2-4.0); Potassium, Blood 5.6 mmol/L (3.5-5.5); Total Protein, Blood 7.9 g/dL (6.4-8.2)
[2024-11-08] MEDS ORDERED: MethylPREDNISolone Sod Succ 125 MG Vial IV ONE (20:50)
[2024-11-09] MEDS ORDERED: MethylPREDNISolone Sod Succ 125 MG Vial IV SCH
[2024-11-09] MEDS ORDERED: Benzonatate 100 MG Cap PO PRN (00:10)
[2024-11-09] MEDS ORDERED: GuaiFENesin 600 MG TabCR PO PRN (00:10)
[2024-11-09 01:56] VITALS: BP 178/90
[2024-11-09 03:55] VITALS: BP 148/83
--- NOTE | 2024-11-09 04:49 | NUR ---
SHIFT SUMMARY: PT IS ALERT AND ORIENTED. PT IS CALM AND COOPERATIVE WITH CARE. PT CALLS APPROPRIATELY. PT IS A STANDBY ASSIST TO THE BATHROOM. PT REPORTS SOB WITH EXERTION, 2 L 02 KEEPING SATS > 90%. PT DENIES PAIN, NAUSEA, AND VOMITING. PT SLEPT MOST OF THE SHIFT AFTER ADMISSION. BED IN LOW POSITION, CALL LIGHT WITHIN REACH. WILL CONTINUE TO MONITOR AND REPORT TO DAY NURSE.
[2024-11-09] MEDS ORDERED: HYDROcodone 10-APAP 325 TAB PO PRN (06:00)
[2024-11-09] MEDS ORDERED: Sodium Chloride 1 GM TAB PO SCH (06:00)
[2024-11-09] MEDS ORDERED: HydrALAZINE HCl 20 MG / ML 1ML Vial IV PRN (06:05)
[2024-11-09 07:04] LABS: BASOPHILS ABSOLUTE AUTO 0.01 K/mm3 (0.00-0.23); BASOPHILS PERCENT AUTO 0 % (0-2); EOSINOPHILS PERCENT AUTO 0 % (0-6); Hematocrit 41.4 % (37.0-53.0); IMMATURE GRAN ABSOLUTE AUTO 0.04 K/mm3 (0.00-0.10); IMMATURE GRAN PERCENT AUTO 0 % (0-1); LYMPHOCYTES ABSOLUTE AUTO 0.79 K/mm3 (0.84-5.20); LYMPHOCYTES PERCENT AUTO 7 % (21-46); MONOCYTES ABSOLUTE AUTO 0.09 K/mm3 (0.16-1.47); MONOCYTES PERCENT AUTO 1 % (4-13); Mean Corpuscular HGB 32.2 pg (26.0-34.0); Mean Corpuscular HGB Conc 33.8 g/dL (31.5-36.5); Mean Corpuscular Volume 95 fL (80-100); Mean Platelet Volume 9.1 fL (9.1-12.4); NEUTROPHILS ABSOLUTE AUTO 10.31 K/mm3 (1.96-9.15); NEUTROPHILS PERCENT AUTO 92 % (41-73); Platelet Count 292 K/mm3 (150-400); RDW Coefficient Variation 11.9 % (11.7-14.2); RDW Standard Deviation 41.8 fL (35.1-46.3); Red Blood Cell Count 4.35 M/mm3 (4.30-5.90); White Blood Cell Count 11.24 K/mm3 (4.00-11.30)
[2024-11-09 07:17] VITALS: BP 150/84
[2024-11-09 07:27] LABS: Albumin, Blood 3.9 g/dL (3.4-5.0); Albumin/Globulin Ratio 0.9 (0.8-1.8); Bilirubin, Total 0.3 mg/dL (0.1-1.0); Calcium, Blood 9.8 mg/dL (8.5-10.1); Creatinine, Blood 0.73 mg/dL (0.60-1.20); Globulin, Blood 4.4 g/dL (2.2-4.0); Potassium, Blood 3.8 mmol/L (3.5-5.5); Total Protein, Blood 8.3 g/dL (6.4-8.2)
[2024-11-09] MEDS ORDERED: Enoxaparin 40 MG/0.4 ML SYR SC SCH (09:00)
[2024-11-09] MEDS ORDERED: Calcium Carbonate 500 MG Tab Chew PO PRN (10:40)
[2024-11-09] MEDS ORDERED: CefTRIAXone Sodium 1,000 MG in NS 100 ML IV SCH (10:42)
[2024-11-09] MEDS ORDERED: DULoxetine HCL 60 MG Capsule DR PO SCH (11:00)
[2024-11-09 15:32] VITALS: BP 166/85
[2024-11-09 19:34] VITALS: BP 160/89
[2024-11-09] MEDS ORDERED: OLANZapine 5 MG Tab PO SCH (21:00)
[2024-11-09] MEDS ORDERED: Diazepam 5 MG Tab PO SCH (21:00)
[2024-11-09] MEDS ORDERED: Gabapentin 300 MG Cap PO SCH (21:00)
[2024-11-09 23:25] LABS: Acinetobacter baumannii DNA Not Detected copy/mL (NOT DETECT); Enterobacter cloacae DNA Not Detected copy/mL (NOT DETECT); Escherichia coli DNA Not Detected copy/mL (NOT DETECT); Haemophilus influenzae DNA Not Detected copy/mL (NOT DETECT); Klebsiella aerogenes DNA Not Detected copy/mL (NOT DETECT); Klebsiella oxytoca DNA Not Detected copy/mL (NOT DETECT); Klebsiella pneumoniae DNA Not Detected copy/mL (NOT DETECT); Moraxella catarrhalis DNA Not Detected copy/mL (NOT DETECT); Proteus sp DNA Not Detected copy/mL (NOT DETECT); Pseudomonas aeruginosa DNA Not Detected copy/mL (NOT DETECT); Serratia marcescens DNA Not Detected copy/mL (NOT DETECT); Staphylococcus aureus DNA Detected Bin 10^5 copy/mL (NOT DETECT); Streptococcus agalactiae DNA Not Detected copy/mL (NOT DETECT); Streptococcus pneumoniae DNA Not Detected copy/mL (NOT DETECT); Streptococcus pyogenes DNA Not Detected copy/mL (NOT DETECT)
[2024-11-09 23:26] LABS: Adenovirus DNA Not Detected (NOT DETECT); Chlamydia pneumonia Not Detected (NOT DETECT); Human Coronavirus RNA Not Detected (NOT DETECT); Human Metapneumovirus RNA Not Detected (NOT DETECT); Influenza virus A RNA Not Detected (NOT DETECT); Influenza virus B RNA Not Detected (NOT DETECT); Legionella pneumophila Not Detected (NOT DETECT); Mycoplasma pneumoniae Not Detected (NOT DETECT); Parainfluenza virus RNA Not Detected (NOT DETECT); Respiratory syncytial Vir RNA Not Detected (NOT DETECT); Rhinovirus+Enterovirus RNA Detected (NOT DETECT); mecA/C and MREJ Resist Gene Detected
[2024-11-10 01:11] LABS: Base Excess Venous 0.1 mmol/L; Bicarbonate Venous 25.3 mmol/L (24.0-30.0); PCO2 Venous 29.4 mmHg (38-42); pH Blood Venous 7.51 (7.34-7.37)
--- NOTE | 2024-11-10 01:16 | NUR ---
OXYGEN TURNED DOWN TO 1L. PT HAS BEEN ON 2L THROUGHOUT THE NIGHT. INSTRUCTION GIVEN TO PT TO CALL IF HE DEVELOPS SOB. CALL LIGHT WITHIN REACH. BED IN LOW POSITION. FLUIDS AT BEDSIDE. PT IN ISOLATION NOW DUE TO SPUTUM RESULTS - SEE LAB.
[2024-11-10 01:39] LABS: Albumin, Blood 3.3 g/dL (3.4-5.0); Anion Gap 11 mmol/L (3-11); Blood Urea Nitrogen 12 mg/dL (8-24); Bun/Creatinine Ratio 17.8 (12.0-20.0); CO2, Blood 21 mmol/L (21-32); Calcium, Blood 8.9 mg/dL (8.5-10.1); Chloride, Blood 95 mmol/L (98-108); Creatinine, Blood 0.68 mg/dL (0.60-1.20); Glomerular Filtration Rate 104 (60-); Glucose, Blood 113 mg/dL (70-99); Phosphorus, Blood 3.7 mg/dL (2.5-4.9); Potassium, Blood 4.1 mmol/L (3.5-5.5); Sodium, Blood 123 mmol/L (136-145)
[2024-11-10 02:56] VITALS: BP 151/93
--- NOTE | 2024-11-10 04:10 | NUR ---
SHIFT SUMMARY - NO ACUTE CHANGES THROUGHOUT THIS SHIFT. PT IS ALERT AND ORIENTED X3, OCCASIONALLY HAVING A DIFFICULT TIME USING THE CALL CUBA CORRECTLY. SPUTUM SENT AT THE BEGINNING OF THE SHIFT - PT WITH WHITE FROTHY SPUTUM - SEE LAB/MICRO. PT PLACED IN ISOLATION AFTER SPUTUM RESULTS WERE RECEIVED. I SPOKE TO DR. BARBARA KING AND UPDATED ON SODIUM LEVEL - BMP ORDER RECEIVED - AND PT IS CURRENTLY ON SODIUM TABLETS TID. I SPOKE TO DR. HART EARLIER WITH PT REQUEST FOR HOME MEDICATION REGIME FOR DIAZEPAM/ZYPREXA - NEW ORDERS PLACED BY DR. HART. REVIEWED WITH PT ETOH USE AND HE REPORTS OCCASIONAL ETOH USE - "NOT DAILY." CALL LIGHT WITHIN REACH. BED IN LOW POSITION. FLUIDS AT BEDSIDE. WILL REPORT OFF TO ONCOMING SHIFT. PT IS ON 1L O2 THIS AM - SEE PREVIOUS NOTE WHEN HIS O2 WAS CHANGED FROM 2L TO 1L.
[2024-11-10 06:30] LABS: Bun/Creatinine Ratio 20.2 (12.0-20.0); Creatinine, Blood 0.6 mg/dL (0.60-1.20); Potassium, Blood 4.3 mmol/L (3.5-5.5)
[2024-11-10 07:37] VITALS: BP 149/86
[2024-11-10] MEDS ORDERED: Nicotine 21 MG PATCH TOP SCH (09:00)
[2024-11-10] MEDS ORDERED: Tamsulosin HCl 0.4 MG Cap PO SCH (09:00)
[2024-11-10] MEDS ORDERED: Atorvastatin 40 MG Tab PO SCH (09:00)
[2024-11-10] MEDS ORDERED: Propranolol HCL 60 MG CAPCR PO SCH (09:00)
[2024-11-10] MEDS ORDERED: Calcium Carbon500 MG PO (10:20)
[2024-11-10] MEDS ORDERED: AMOCLA875 PO (10:21)
[2024-11-10] MEDS ORDERED: Vitamin D1000 UNI1 PO (10:22)
[2024-11-10] MEDS ORDERED: ALBU90OI INH (10:22)
[2024-11-10] MEDS ORDERED: PRED20 PO (10:25)
--- NOTE | 2024-11-10 15:10 | NUR ---
DISCHARGED HOME 1217, FRIEND ACCOMPANYING PATIENT HOME. DISCHARGE INSTRUCTIONS, MEDICATIONS, AND FOLLOW UP NEEDS REVEIWED, PATIENT STATED UNDERSTANDING. PATIENT DENIED FURTHER QUESTIONS, PLEASANT TO CARE
== END 2024-11-10 12:30 | disposition home or self-care (01) | DRG 189 ==
LOC: ER 18:46 → MEDS 18:47
PROVIDERS: Internal Medicine Endocrinology, Diabetes & Metabolism; Student in an Organized Health Care Education/Training Program; ADMIT Student in an Organized Health Care Education/Training Program
DX: J96.01 Acute respiratory failure with hypoxia (principal); J44.1 Chronic obstructive pulmonary disease with (acute) exacerbation; E87.1 Hypo-osmolality and hyponatremia; E87.20 Acidosis, unspecified; J96.02 Acute respiratory failure with hypercapnia; I10 Essential (primary) hypertension; F41.8 Other specified anxiety disorders; J43.9 Emphysema, unspecified; M81.0 Age-related osteoporosis without current pathological fracture; B95.62 Methicillin resistant Staphylococcus aureus infection as the cause of diseases classified elsewhere; E87.5 Hyperkalemia; F17.200 Nicotine dependence, unspecified, uncomplicated; F10.21 Alcohol dependence, in remission; E78.5 Hyperlipidemia, unspecified; Z85.46 Personal history of malignant neoplasm of prostate; Z92.3 Personal history of irradiation; Z79.891 Long term (current) use of opiate analgesic
CPT/HCPCS: 0528U; 36415; 71045; 71046; 80048; 80053; 80069; 82306; 82803; 84484; 85025; 87070; 87077; 87186; 87205; 93005; 93010; 94640; 94664; 94760; 94762; 99285-25; A9270; G0378; J0696; J1650; J2919

== ENCOUNTER 2024-11-18 12:58 | Emergency (ER) | payer OTHER ==
[~2024-11-18] VITALS: Ht 182.9 cm; Wt 64.0 kg
[~2024-11-18 12:58] MED LIST changes: +AMOCLA875 PO; +Calcium Carbon500 MG PO; +PRED20 PO; +PROPRANOLOL HC120 MG PO; +Vitamin D1000 UNI1 PO
[2024-11-18 13:31] VITALS: BP 158/90
== END 2024-11-18 14:25 | disposition home or self-care (01) ==
LOC: ER 12:58
DX: Z00.8 Encounter for other general examination (principal); F17.210 Nicotine dependence, cigarettes, uncomplicated
CPT/HCPCS: 99283

== ENCOUNTER 2024-11-25 15:28 | Inpatient (IN) | payer OTHER ==
[~2024-11-25] VITALS: Ht 182.9 cm; Wt 63.5 kg
[2024-11-25] MEDS ORDERED: Albuterol 2.5 MG/3 ML VIAL INH SCH (15:40)
[2024-11-25] MEDS ORDERED: MethylPREDNISolone Sod Succ 125 MG Vial IV ONE (15:45)
[2024-11-25 16:19] LABS: BASOPHILS ABSOLUTE AUTO 0.03 K/mm3 (0.00-0.23); BASOPHILS PERCENT AUTO 0 % (0-2); EOSINOPHILS ABSOLUTE AUTO 0.13 K/mm3 (0.00-0.68); EOSINOPHILS PERCENT AUTO 1 % (0-6); Hematocrit 37.3 % (37.0-53.0); Hemoglobin 12.6 g/dL (13.5-17.5); IMMATURE GRAN ABSOLUTE AUTO 0.04 K/mm3 (0.00-0.10); IMMATURE GRAN PERCENT AUTO 0 % (0-1); LYMPHOCYTES ABSOLUTE AUTO 1.28 K/mm3 (0.84-5.20); LYMPHOCYTES PERCENT AUTO 12 % (21-46); MONOCYTES ABSOLUTE AUTO 0.65 K/mm3 (0.16-1.47); MONOCYTES PERCENT AUTO 6 % (4-13); Mean Corpuscular HGB 33.3 pg (26.0-34.0); Mean Corpuscular HGB Conc 33.8 g/dL (31.5-36.5); Mean Corpuscular Volume 99 fL (80-100); Mean Platelet Volume 9.1 fL (9.1-12.4); NEUTROPHILS ABSOLUTE AUTO 8.87 K/mm3 (1.96-9.15); NEUTROPHILS PERCENT AUTO 81 % (41-73); Platelet Count 164 K/mm3 (150-400); RDW Coefficient Variation 12.5 % (11.7-14.2); RDW Standard Deviation 45.1 fL (35.1-46.3); Red Blood Cell Count 3.78 M/mm3 (4.30-5.90)
[2024-11-25 16:44] LABS: Albumin, Blood 3.5 g/dL (3.4-5.0); Albumin/Globulin Ratio 0.9 (0.8-1.8); Bilirubin, Total 0.3 mg/dL (0.1-1.0); Bun/Creatinine Ratio 12.4 (12.0-20.0); Calcium, Blood 9.8 mg/dL (8.5-10.1); Creatinine, Blood 0.73 mg/dL (0.60-1.20); Globulin, Blood 3.9 g/dL (2.2-4.0); Magnesium, Blood 1.9 mg/dL (1.6-2.4); Potassium, Blood 4.2 mmol/L (3.5-5.5); Total Protein, Blood 7.4 g/dL (6.4-8.2)
[2024-11-25] MEDS ORDERED: Azithromycin 250 MG Tab PO ONE (17:55)
[2024-11-25 18:19] LABS: Base Excess Venous 6.2 mmol/L; Bicarbonate Venous 28.5 mmol/L (24.0-30.0); PCO2 Venous 48.8 mmHg (38-42); pH Blood Venous 7.41 (7.34-7.37)
[2024-11-25] MEDS ORDERED: Ondansetron HCl 2 MG / ML 2ML Vial IV PRN (18:35)
[2024-11-25] MEDS ORDERED: NS 1,000 ML IV SCH (18:35)
[2024-11-25] MEDS ORDERED: Albuterol 2.5 MG/3 ML VIAL INH PRN (18:35)
[2024-11-25] MEDS ORDERED: Ipratropium/Albuterol SulF 2.5-0.5MG/3 ML Amp INH SCH (19:00)
[2024-11-25 19:41] LABS: Adenovirus Not Detected (NOT DETECT); Coronavirus 229E Not Detected (NOT DETECT); Coronavirus HKU1 Not Detected (NOT DETECT); Coronavirus NL63 Not Detected (NOT DETECT); Coronavirus OC43 Not Detected (NOT DETECT); Human Metapneumovirus Not Detected (NOT DETECT); Human Rhinovirus/Enterovirus Not Detected (NOT DETECT); Influenza A/2009-H1 Not Detected (NOT DETECT); Influenza A/H1 Not Detected (NOT DETECT); Influenza A/H3 Not Detected (NOT DETECT); Influenza B Not Detected (NOT DETECT); SARS-Cov-2 (COVID-19), BioFire Not Detected (NOT DETECT)
[2024-11-25 19:42] LABS: Bordetella pertussis Not Detected (NOT DETECT); Chlamydophila pneumoniae Not Detected (NOT DETECT); Mycoplasma pneumoniae Not Detected (NOT DETECT); Parainfluenza Virus 1 Not Detected (NOT DETECT); Parainfluenza Virus 2 Not Detected (NOT DETECT); Parainfluenza Virus 3 Not Detected (NOT DETECT); Parainfluenza Virus 4 Not Detected (NOT DETECT); Respiratory Syncytial Virus Not Detected (NOT DETECT)
[2024-11-25 21:40] VITALS: BP 134/88
[2024-11-25 22:02] LABS: Base Excess Venous 4.5 mmol/L; Bicarbonate Venous 27.6 mmol/L (24.0-30.0); PCO2 Venous 46.4 mmHg (38-42); pH Blood Venous 7.41 (7.34-7.37)
[2024-11-25] MEDS ORDERED: HYDROcodone 10-APAP 325 TAB PO PRN (22:50)
[2024-11-25 23:16] VITALS: BP 147/82
[2024-11-26] MEDS ORDERED: MethylPREDNISolone Sod Succ 125 MG Vial IV SCH
[2024-11-26 04:07] VITALS: BP 143/88
[2024-11-26 04:14] LABS: Hematocrit 34.2 % (37.0-53.0); Hemoglobin 11.4 g/dL (13.5-17.5); Mean Corpuscular HGB 32.2 pg (26.0-34.0); Mean Corpuscular HGB Conc 33.3 g/dL (31.5-36.5); Mean Corpuscular Volume 97 fL (80-100); Mean Platelet Volume 9.1 fL (9.1-12.4); Platelet Count 149 K/mm3 (150-400); RDW Coefficient Variation 12.2 % (11.7-14.2); RDW Standard Deviation 43.7 fL (35.1-46.3); Red Blood Cell Count 3.54 M/mm3 (4.30-5.90); White Blood Cell Count 8.67 K/mm3 (4.00-11.30)
[2024-11-26 04:42] LABS: Bun/Creatinine Ratio 12.3 (12.0-20.0); Calcium, Blood 9.5 mg/dL (8.5-10.1); Creatinine, Blood 0.65 mg/dL (0.60-1.20); Potassium, Blood 4.1 mmol/L (3.5-5.5)
--- NOTE | 2024-11-26 06:35 | NUR ---
SHIFT SUMMARY PATIENT A&O X4. VITAL SIGNS STABLE. PATIENT ON 2L O2 VIA NC. MEDICATED PATIENT FOR PAIN PER EMAR. PATIENT DENIES FEELING SHORT OF BREATH. NO ACUTE CONDITIONS NOTED OVERNIGHT.
[2024-11-26 08:38] VITALS: BP 137/69
[2024-11-26] MEDS ORDERED: Enoxaparin 40 MG/0.4 ML SYR SC SCH (09:00)
[2024-11-26] MEDS ORDERED: DULoxetine HCL 60 MG Capsule DR PO SCH (09:00)
[2024-11-26] MEDS ORDERED: Sodium Chloride 1 GM TAB PO SCH (09:00)
[2024-11-26] MEDS ORDERED: Atorvastatin 40 MG Tab PO SCH (09:00)
[2024-11-26] MEDS ORDERED: Cholecalciferol 1000 Unit Tablet (=25MCG) PO SCH (09:00)
[2024-11-26] MEDS ORDERED: Tamsulosin HCl 0.4 MG Cap PO SCH (09:00)
[2024-11-26] MEDS ORDERED: Folic Acid 1 MG TAB PO SCH (09:00)
[2024-11-26] MEDS ORDERED: Propranolol HCL 60 MG CAPCR PO SCH (09:00)
--- NOTE | 2024-11-26 11:48 | NUR ---
CONTACTED FOR PATIENT REQUESTING NICOTINE PATCH- ORDERED FOR NICOTINE PATCH DAILY WITH FIRST DOSE TODAY.
[2024-11-26] MEDS ORDERED: Nicotine 14 MG PATCH TOP SCH (11:50)
--- NOTE | 2024-11-26 12:45 | NUR ---
TRANSFER OF CARE/DAY NOTE. PATIENT IS A&OX4, CALLS APPROPRIATELY AND IS ABLE TO MAKE HER NEEDS KNOWN. PATIENT IS ON AIRVO AT BEGINNING OF SHIFT, PATIENT DESATTING AND MOVED TO BIPAP. PATIENT DOES WELL ON BIPAP. ALTERNATIVE FINANCING SPECIALIST INTO SEE PATIENT-BIPAP SETTING MOVED TO PATIENTS HOME BIPAP SETTING BY ALTERNATIVE FINANCING SPECIALIST-PATIENT TOLERATING WELL AND MAINTAINING SPO2 GOAL. PATIENT TAKES MEDS WHOLE WITH WATER AND IS A 1P ASSIST TO BSC/CHAIR/BED. PATIENT HAS RASH TO BACK THAT IS ITCHY-DOCTOR CONTACTED AND ORDERED FOR A ONE TIME DOSE OF DIFLUCAN, ATARAX DAILY PRN-SEE ORDERS. PATIENT HAS REDNESS TO GROIN AND PANNUS-DOCTOR ORDERED FOR MEDICATED POWDER TO BE APPLIED BID. PATIENT DENIES SOB WITH DESATTING AND AT REST, PATIENT WORKS ON INCENTIVE SPIROMETER WHEN AIRVO ON AND AWAKE. PATIENT NEEDS ASSESSED, PATIENT DENIES NEEDS AT THIS TIME. CARE TRANSFERED TO LELIA AGUILERA.
[2024-11-26 15:13] VITALS: BP 134/76
--- NOTE | 2024-11-26 16:39 | NUR ---
[facility] I visited the patient. 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 He shares about his strong Pentecostal zechariah but also his struggle with depression at times. He states that his zechariah is what gets him through but he is challenged by his medical complications and the limitations that go with it. We talk about focusing on what he can do, what he does have and the great people that are in his world. I provided therapeutic listening and prayer. The patient responded well and showed signs of an elevated mood.
--- NOTE | 2024-11-26 16:49 | NUR ---
SHIFT SUMMARY THIS RN ASSUMED PRIMARY CARE OF PT FROM MARY JANE AGUILERA AT APPROX. 1300. HE IS ALERT AND ORIENTED X 4, SP02 MAINTAINED >95% VIA RA, OCCASSIONAL COUGH NOTED. BP AND HR STABLE. HE DENIES FEELINGS OF CHEST PAIN/PRESSURE, NAUSEA/VOMITTING AND REPORTS IMPROVEMENT IN FEELING SOB. HE HAS VOIDED USING BEDSIDE URINAL. HE IS A SBA TO RECLINER CHAIR DUE TO FEELING SLIGHTLY DIZZY UPON AMBULATION BUT REPORTED BEING INDEPENDENT AT BASELINE. CALL LIGHT IS W/IN REACH.
[2024-11-26] MEDS ORDERED: Azithromycin 500 MG in NS 250 ML IV SCH (18:00)
[2024-11-26 20:07] VITALS: BP 128/81
[2024-11-27 00:10] VITALS: BP 132/74
[2024-11-27 04:10] VITALS: BP 126/72
[2024-11-27 04:38] LABS: BASOPHILS ABSOLUTE AUTO 0.01 K/mm3 (0.00-0.23); BASOPHILS PERCENT AUTO 0 % (0-2); EOSINOPHILS PERCENT AUTO 0 % (0-6); Hematocrit 33.1 % (37.0-53.0); Hemoglobin 11.3 g/dL (13.5-17.5); IMMATURE GRAN ABSOLUTE AUTO 0.07 K/mm3 (0.00-0.10); IMMATURE GRAN PERCENT AUTO 1 % (0-1); LYMPHOCYTES ABSOLUTE AUTO 0.53 K/mm3 (0.84-5.20); LYMPHOCYTES PERCENT AUTO 4 % (21-46); MONOCYTES ABSOLUTE AUTO 0.27 K/mm3 (0.16-1.47); MONOCYTES PERCENT AUTO 2 % (4-13); Mean Corpuscular HGB 32.8 pg (26.0-34.0); Mean Corpuscular HGB Conc 34.1 g/dL (31.5-36.5); Mean Corpuscular Volume 96 fL (80-100); Mean Platelet Volume 9.3 fL (9.1-12.4); NEUTROPHILS ABSOLUTE AUTO 11.49 K/mm3 (1.96-9.15); NEUTROPHILS PERCENT AUTO 93 % (41-73); Platelet Count 161 K/mm3 (150-400); RDW Coefficient Variation 12.3 % (11.7-14.2); RDW Standard Deviation 42.8 fL (35.1-46.3); Red Blood Cell Count 3.44 M/mm3 (4.30-5.90); White Blood Cell Count 12.37 K/mm3 (4.00-11.30)
[2024-11-27 05:00] LABS: Bun/Creatinine Ratio 14.6 (12.0-20.0); Creatinine, Blood 0.75 mg/dL (0.60-1.20)
--- NOTE | 2024-11-27 05:59 | NUR ---
SHIFT SUMMARY PATIENT A&O X4. VITAL SIGNS STABLE. PATIENT ON ROOM AIR. PATIENT STATED FEELING PAIN IN HIS BACK WHICH IS CHRONIC, MEDICATED PER EMAR.
[2024-11-27 09:20] VITALS: BP 141/80
[2024-11-27] MEDS ORDERED: Nicoderm Cq1 EAC1 TOP (13:18)
[2024-11-27] MEDS ORDERED: PRED20 PO (13:20)
[2024-11-27] MEDS ORDERED: TRELEGY ELLIPT1 EACH INH (13:24)
--- NOTE | 2024-11-27 14:12 | NUR ---
DISCHARGE SUMMARY: PATIENT STABLE ON ROOM AIR THROUGHOUT THE SHIFT. SPO2 >92%. PATIENT DENIED SHORTNESS OF BREATH OR WITH MINIMAL ACTIVITY. REPORTED MINIMAL SHORTNESS OF BREATH AFTER EXTENDED ACTIVITY. DENIED DIZZINESS OR LIGHTHEADEDNESS. PATIENT STEADY ON FEET. VITALS STABLE WITH MAPS >65. HR IN THE 80S. DENIED CHEST PAIN OR DISCOMFORT. PATIENT VOIDING WITHOUT DIFFICULTY. TOLERATING PO INTAKE WITHOUT NAUSEA OR DISCOMFORT. PER ORDERS, PATIENT READY FOR DISCHARGE. DISCHARGE RX FAXED TO [facility] PER REQUEST. PATIENT REPORTED INTEREST IN STOPPING SMOKING. EDUCATION PROVIDED AND ENSURED PATIENT HAD AN RX FOR A NICOTINE PATCH. DISCHARGE EDUCATION AND INTRUCTIONS PROVIDED. ALL QUESTIONS AND CONCERNS ADDRESSED. PATIENT DISCHARGED IN WHEELCHAIR WITH THIS RN AND FAMILY. PATIENT STABLE AT TIME OF DISCHARGE.
== END 2024-11-27 14:57 | disposition home or self-care (01) | DRG 189 ==
LOC: ER 15:28 → PCU 18:30
PROVIDERS: Emergency Medicine; Internal Medicine; Nurse Practitioner Acute Care; ADMIT Internal Medicine
PROC: 5A09357 Assistance with Respiratory Ventilation, Less than 24 Consecutive Hours, Continuous Positive Airway Pressure (ICD-10-PCS; principal; 2024-11-25)
DX: J96.01 Acute respiratory failure with hypoxia (principal); J44.1 Chronic obstructive pulmonary disease with (acute) exacerbation; E87.1 Hypo-osmolality and hyponatremia; J96.02 Acute respiratory failure with hypercapnia; F41.8 Other specified anxiety disorders; Z66 Do not resuscitate; N18.2 Chronic kidney disease, stage 2 (mild); G89.4 Chronic pain syndrome; E78.5 Hyperlipidemia, unspecified; I12.9 Hypertensive chronic kidney disease with stage 1 through stage 4 chronic kidney disease, or unspecified chronic kidney disease; J43.9 Emphysema, unspecified; F17.210 Nicotine dependence, cigarettes, uncomplicated; Z85.46 Personal history of malignant neoplasm of prostate; Z86.16 Personal history of COVID-19
CPT/HCPCS: 0202U; 36415; 36416; 71046; 80048; 80053; 82803; 83605; 83735; 83880; 84145; 84484; 85025; 85027; 93005; 93010; 94640; 94660; 94664; 94761; 94762; 96374; 99285-25; A9270; J0456; J1650; J2919; J7030; J7050